=== PATIENT | male | born 1960 | race Caucasian/White ===

== ENCOUNTER 2016-04-09 01:06 | Observation (INO) | payer OTHER ==
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
[2016-04-09] MEDS ORDERED: NS 1,000 ML IV ONE ×2 (01:33→02:01)
[2016-04-09] MEDS ORDERED: fentaNYL 100 MCG/2 ML INJ IVP ONE (01:33)
[2016-04-09] MEDS ORDERED: ONDANSETRON 4 MG/2 ML VIAL IVP ONE (01:33)
[2016-04-09] MEDS ORDERED: IOPAMIDOL (ISOVUE-300) 100 ML BTL IV ONE ×2 (01:53→09:51)
[2016-04-09 02:11] LABS: ADD DIFF? YES; ADD MORPH? NO; ATYPICAL LYMPHOCYTE FLAG 0 (0-99); FRAGMENT RBC FLAG 0 (0-99); HEMATOCRIT 27.7 % (40.0-51.0); HEMOGLOBIN 8.9 g/dL (13.7-17.5); LIPEMIA HEMOLYSIS FLAG 80 (0-99); MEAN CELL HEMOGLOBIN CONCENTR. 32.1 g/dL (32.4-36.7); MEAN CELL VOLUME 93.3 fL (81.5-99.8); MEAN PLATELET VOLUME 12.6 fL (8.7-11.7); PLATELET CLUMPS FLAG 0 (0-99); PLATELET COUNT 60 10^3/uL (150-400); RED BLOOD CELL COUNT 2.97 10^6/uL (4.40-6.38); RED CELL DISTRIBUTION WIDTH 16.1 % (11.5-15.2)
[2016-04-09 02:13] LABS: ADD SCAN? NO; LEFT SHIFT FLG 140 (0-99)
[2016-04-09 02:19] LABS: INR 1.18 (0.83-1.16)
[2016-04-09 02:20] LABS: APTT 25.9 SEC (23.0-38.0)
[2016-04-09 02:24] LABS: ALANINE AMINOTRANSFERASE 41 IU/L (21-72); ALBUMIN 3.3 g/dL (3.5-5.0); ALKALINE PHOSPHATASE 183 IU/L (38-126); ANION GAP 10 mEq/L (8-16); ASPARTATE AMINOTRANSFERASE 43 IU/L (17-59); BILIRUBIN,TOTAL 0.5 mg/dL (0.1-1.4); CALCIUM 9.2 mg/dL (8.5-10.4); CARBON DIOXIDE 24 mEq/l (22-31); CHLORIDE 100 mEq/L (97-110); CREATININE 0.9 mg/dL (0.7-1.3); GLOMERULAR FILTRATION RATE > 60; GLUCOSE 117 mg/dL (70-100); POTASSIUM 3.6 mEq/L (3.5-5.2); SODIUM 134 mEq/L (134-144); TOTAL PROTEIN 6.2 g/dL (6.3-8.2)
[2016-04-09 03:21] LABS: PLATELET ESTIMATE DECREASED (ADEQ)
[2016-04-09 03:22] LABS: TOXIC GRANULATION PRESENT
[2016-04-09] MEDS ORDERED: CEFEPIME HCL 2 GM in D5W 100 ML IV ONE (03:28)
[2016-04-09] MEDS ORDERED: VANCOMYCIN HCL/NORMAL SALINE 250 ML IV ONE (03:30)
[2016-04-09 04:13] LABS: COLOR YELLOW; LEUKOCYTE ESTERASE,URINE NEGATIVE (NEGATIVE); NITRITE,URINE NEGATIVE (NEGATIVE)
[2016-04-09 04:41] LABS: MUCUS TRACE /lpf (NONE-1+); RBC,URINE 15-25 /hpf (0-3)
[2016-04-09] MEDS ORDERED: ONDANSETRON DISINTEGRATING 4 MG TAB PO PRN ×2 (05:02→10:41)
[2016-04-09] MEDS ORDERED: ACETAMINOPHEN 325 MG TAB PO PRN (05:02)
--- NOTE | 2016-04-09 05:15 | PDGENHP ---
History and Physical - Chief Complaint back pain - History of Present Illness Pt is 55/M with stage IV pancreatic ca (mets to liver, undergoing chemotherapy, last session 04/05) who presents to the ED with complaint of back pain after falling. Pt states he went snowboarding at [facility] on 04/08, at around 4 pm he fell backward, landing on his back and left side. Immediately he felt breathless from the fall, but was able [place] By arrival at the bottom, he began to feel significant sharp pain in his left mid back, shoulder and left flank. He also describes feeling dizzy and significantly short of breath. He was then driven home by his friends, where he took 2 tabs of percocet and laid down in his bed. The pain continued to worsen, with no improvement with percocet, so he decided to come to the ED. He also began experiencing abdominal/bloating pain, without nausea/vomiting. He denies any recent fevers (has chronic chills, nightsweats), congestion, cough , chest pain, palpitations, dysuria or diarrhea. Last BM was this morning and normal. Upon arrival to the ED, pt was afebrile and initially hemodynamically stable. While being evaluated in the ED, pt's BP began to decrease (to SBP 80s). Labs were significant for leukocytosis (32k), mild anemia (Hb 8), thrombocytopenia, CMP (mild alk phos elevation) was largely normal and UA was neg for infection. CT head, c-spine and chest were obtained in evaluation for any acute trauma and were negative for acute traumatic abnormalities. CT chest revealed bibasilar atelectasis vs infiltrate. Onc manager clinical applications was consulted and recommended empiric abx and inpt observation. Pt was then cultured, given Vanc/Cefepime and admitted to the hospitalist service for further management. History Information - Allergies/Home Medication List Allergies/Adverse Reactions: No Known Allergies Allergy (Unverified 04/09/16 03:44) Home Medications: LORazepam 04/09/16 [Last Taken Unknown] Losartan Potassium 04/09/16 [Last Taken Unknown] [place] 5/325 (*) 04/09/16 [Last Taken Unknown] Ricardo Mooney 16,000 Units Caps 04/09/16 [Last Taken Unknown] ZOLPIDEM TARTRATE 04/09/16 [Last Taken Unknown] Zofran Odt 04/09/16 [Last Taken Unknown] I have personally reviewed and updated: family history, medical history, social history, surgical history - Past Medical History Additional medical history: Stage IV Pancreatic ca: dx 09/2015, initiated on chemo in 10/2015 via R chest wall chemoport; follows with [facility]. Hospitalized in 11/2015 for abdominal infection, treated with short course of antibiotics. - Surgical History Additional surgical history: knee arthroscopy. 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 Lives with in [place]. Review of Systems ROS: 10pt was reviewed & negative except for what was stated in HPI & below Physical Exam Temp Pulse Resp BP Pulse Ox 36.6 C 86 18 93/52 L 94 04/09/16 04:24 04/09/16 04:24 04/09/16 04:24 04/09/16 04:24 04/09/16 04:24 O2 (L/minute) 2 Constitutional: no apparent distress, appears nourished, uncomfortable (in pain) Eyes: PERRL, anicteric sclera, EOMI Ears, Nose, Mouth, Throat: moist mucous membranes, hearing normal, ears appear normal, no oral mucosal ulcers Cardiovascular: regular rate and rhythym, no murmur, rub, or gallop, pulses symmetric bilaterally, No JVD, No edema Peripheral Pulses: 2+: dorsalis-pedis (R), dorsalis-pedis (L) Respiratory: no respiratory distress, no rales or rhonchi, clear to auscultation Gastrointestinal: normoactive bowel sounds, no palpable masses, tenderness (in LUQ/flank with faint ecchymosis present; no RUQ tenderness; nondistended; +BS) Genitourinary: no bladder fullness, no bladder tenderness Skin: warm, normal color, no rashes or abrasions, No mottled Musculoskeletal: full muscle strength, no muscle tenderness, normal joint ROM ( L shoulder with normal ROM, no pain on ROM), no joint effusions, other (diffuse muscular spasm of b/l trapezius/rhomboid mm L>R; NO midline spinal tenderness in C/T/L spine) Neurologic: AAOx3, sensation intact bilaterally, CN II-XII Intact, No weakness, No numbness, No pronator drift Psychiatric: interacting appropriately, not anxious, not encephalopathic, thought process linear Lab Data & Imaging Review 04/09/16 02:00 04/09/16 02:00 WBC 32.15 10^3/uL (3.80-9.50) H 04/09/16 02:00 RBC 2.97 10^6/uL (4.40-6.38) L 04/09/16 02:00 Hgb 8.9 g/dL (13.7-17.5) L 04/09/16 02:00 POC Hgb 9.5 gm/dL (14.5-17.3) L 04/09/16 01:57 Hct 27.7 % (40.0-51.0) L 04/09/16 02:00 POC Hct 28 % (42.8-50.6) L 04/09/16 01:57 MCV 93.3 fL (81.5-99.8) 04/09/16 02:00 MCH 30.0 pg (27.9-34.1) 04/09/16 02:00 MCHC 32.1 g/dL (32.4-36.7) L 04/09/16 02:00 RDW 16.1 % (11.5-15.2) H 04/09/16 02:00 Plt Count 60 10^3/uL (150-400) L 04/09/16 02:00 MPV 12.6 fL (8.7-11.7) H 04/09/16 02:00 Neut % (Auto) Not Reported 04/09/16 02:00 Lymph % (Auto) Not Reported 04/09/16 02:00 [place] % (Auto) Not Reported 04/09/16 02:00 Eos % (Auto) Not Reported 04/09/16 02:00 Baso % (Auto) Not Reported 04/09/16 02:00 Nucleat RBC Rel Count 0.0 % (0.0-0.2) 04/09/16 02:00 Absolute Neuts (auto) Not Reported 04/09/16 02:00 Absolute Lymphs (auto) Not Reported 04/09/16 02:00 Absolute Monos (auto) Not Reported 04/09/16 02:00 Absolute Eos (auto) Not Reported 04/09/16 02:00 Absolute Basos (auto) Not Reported 04/09/16 02:00 Absolute Nucleated RBC 0.00 10^3/uL (0-0.01) 04/09/16 02:00 Immature Gran % Not Reported 04/09/16 02:00 Seg Neutrophils % 78 % 04/09/16 02:00 Band Neutrophils % 8 % 04/09/16 02:00 Lymphocytes % 14 % 04/09/16 02:00 Monocytes % 1 % 04/09/16 02:00 Immature Gran # Not Reported 04/09/16 02:00 Absolute Seg Neuts 25.08 10^/uL (1.70-6.50) H 04/09/16 02:00 Absolute Band Neuts 2.57 10^3/uL (0.00-0.70) H 04/09/16 02:00 Absolute Lymphocytes 4.50 10^3/uL (1.00-3.00) H 04/09/16 02:00 Absolute Monocytes 0.32 10^3/uL (0.30-0.80) 04/09/16 02:00 Toxic Granulation PRESENT H 04/09/16 02:00 Dohle Bodies PRESENT H 04/09/16 02:00 Platelet Estimate DECREASED (ADEQ) L 04/09/16 02:00 PT 15.0 SEC (12.0-15.0) 04/09/16 02:00 INR 1.18 (0.83-1.16) H 04/09/16 02:00 APTT 25.9 SEC (23.0-38.0) 04/09/16 02:00 VBG Lactic Acid 1.1 mmol/L (0.7-2.1) 04/09/16 03:37 POC Sodium 134 mEq/L (134-144) 04/09/16 01:57 Sodium 134 mEq/L (134-144) 04/09/16 02:00 POC Potassium 3.5 mEq/L (3.3-5.0) 04/09/16 01:57 Potassium 3.6 mEq/L (3.5-5.2) 04/09/16 02:00 POC Chloride 98 mEq/L (96-108) 04/09/16 01:57 Chloride 100 mEq/L (97-110) 04/09/16 02:00 Carbon Dioxide 24 mEq/l (22-31) 04/09/16 02:00 Anion Gap 10 mEq/L (8-16) 04/09/16 02:00 POC BUN 23 mg/dL (7-23) 04/09/16 01:57 BUN 23 mg/dL (7-23) 04/09/16 02:00 Creatinine 0.9 mg/dL (0.7-1.3) 04/09/16 02:00 POC Creatinine 0.9 mg/dL (0.8-1.5) 04/09/16 01:57 Estimated GFR > 60 04/09/16 02:00 Glucose 117 mg/dL (70-100) H 04/09/16 02:00 POC Glucose 121 mg/dL (70-100) H 04/09/16 01:57 Calcium 9.2 mg/dL (8.5-10.4) 04/09/16 02:00 Total Bilirubin 0.5 mg/dL (0.1-1.4) 04/09/16 02:00 AST 43 IU/L (17-59) 04/09/16 02:00 ALT 41 IU/L (21-72) 04/09/16 02:00 Alkaline Phosphatase 183 IU/L (38-126) H 04/09/16 02:00 Total Protein 6.2 g/dL (6.3-8.2) L 04/09/16 02:00 Albumin 3.3 g/dL (3.5-5.0) L 04/09/16 02:00 Urine Color YELLOW 04/09/16 02:05 Urine Appearance CLEAR 04/09/16 02:05 Urine pH 5.0 (5.0-7.5) 04/09/16 02:05 Ur Specific [place] 1.018 (1.002-1.030) 04/09/16 02:05 Urine Protein NEGATIVE (NEGATIVE) 04/09/16 02:05 Urine Ketones NEGATIVE (NEGATIVE) 04/09/16 02:05 Urine Blood 2+ (NEGATIVE) H 04/09/16 02:05 Urine Nitrate NEGATIVE (NEGATIVE) 04/09/16 02:05 Urine Bilirubin NEGATIVE (NEGATIVE) 04/09/16 02:05 Urine Urobilinogen NEGATIVE EU (0.2-1.0) 04/09/16 02:05 Ur Leukocyte Esterase NEGATIVE (NEGATIVE) 04/09/16 02:05 Urine RBC 15-25 /hpf (0-3) H 04/09/16 02:05 Urine WBC 1-3 /hpf (0-3) 04/09/16 02:05 Ur Epithelial Cells TRACE /lpf (NONE-1+) 04/09/16 02:05 Urine Mucus TRACE /lpf (NONE-1+) 04/09/16 02:05 Ur Culture Indicated? NOT INDICATED (NI) 04/09/16 02:05 Urine Glucose NEGATIVE (NEGATIVE) 04/09/16 02:05 Visualized and Interpreted Chest x-ray results: Yes Chest X-Ray results: no infiltrate, normal Visualized and Interpreted imaging results: Yes Interpretation: CT Chest: no acute rib fractures noted; bibasilar atelectasis vs infiltrate; hepatomegaly. CT C-spine: no acute fracture. CT Head; no acute intracranial hemorrhage, edema, shift Assessment & Plan Assessment: Pt is 55/M with stage IV pancreatic ca who presents to the ED with L-sided back pain after sustaining a mechanical fall while snowboarding. ED w/u also revealed, leukocytosis and hypotension concerning for occult infection. Plan: # acute pain of back and flank Pain appears to be related to the acute fall sustained earlier in the day. Imaging has ruled out acute fracture, internal hemorrhage, pneumothorax and physical exam is consistent with acute muscle spasm. Will treat with pain meds and muscle relaxants, as tolerated by BP. - Dilaudid 0.2-0.4 mg IVP q3h prn - valium 5 mg IVP q6h prn # leukocytosis Etiology of this at this time is unclear. Concern for bacterial infection is high, given pt is immunocompromised, but no obvious source has yet been identified (?atelectasis in CT chest, port site nonerythematous/nontender, UA neg, bilirubins/LFTs wnl). Mildly elevated alk phos likely related to pancreatic ca, but will check Abd US. Will treat with empiric broad spectrum abx until source can be identified. - f/u blood cultures - check abd US, if unrevealing, consider CT abd/pelvis - cont Vanc 1 g q12h - Cefepime 2 g q12h - cont NS @ 100 cc/hr # anemia, thrombocytopenia Pt states this has been an ongoing side-effect of his chemo regimen. Has been receiving neulasta infusions for treatment (which could be contributing to leukocytosis). No obvious signs of bleeding, coags wnl. - trend CBC # stage IV pancreatic ca Stable. [facility] notified of pt's admission by ED. # dispo: admit to obs status for acute pain control and w/u for infection # gen: regular diet DVT ppx: lovenox, dc if Plts <50 full code
[2016-04-09] MEDS: NS 1,000 ML IV SCH (05:20)
[2016-04-09] MEDS: HYDROmorphONE/DILAUDID 1 MG/ML SYR IVP PRN ×3 (05:29→15:09)
[2016-04-09] MEDS: ONDANSETRON 4 MG/2 ML VIAL IVP PRN ×2 (05:43→20:42)
[2016-04-09] MEDS: oxyCODONE IR 5 MG TAB PO PRN ×4 (08:27→20:42)
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
[2016-04-09 08:58] LABS: ADD DIFF? YES; ADD MORPH? NO; ATYPICAL LYMPHOCYTE FLAG 0 (0-99); FRAGMENT RBC FLAG 0 (0-99); HEMATOCRIT 24.1 % (40.0-51.0); HEMOGLOBIN 7.8 g/dL (13.7-17.5); LIPEMIA HEMOLYSIS FLAG 80 (0-99); MEAN CELL HEMOGLOBIN 30.2 pg (27.9-34.1); MEAN CELL HEMOGLOBIN CONCENTR. 32.4 g/dL (32.4-36.7); MEAN CELL VOLUME 93.4 fL (81.5-99.8); PLATELET CLUMPS FLAG 0 (0-99); PLATELET COUNT 55 10^3/uL (150-400); RED BLOOD CELL COUNT 2.58 10^6/uL (4.40-6.38); RED CELL DISTRIBUTION WIDTH 16.2 % (11.5-15.2)
[2016-04-09] MEDS ORDERED: ENOXAPARIN 40 MG/0.4 ML SYR SC SCH ×2 (09:00)
[2016-04-09 09:04] LABS: LEFT SHIFT FLG 240 (0-99)
--- NOTE | 2016-04-09 09:05 | US ---
Ultrasound of the Abdomen Complete History: Pancreatic cancer, leukocytosis. Findings Gallbladder: A 1.1 cm mobile shadowing calculus in the gallbladder. No gallbladder wall thickening or pericholecystic fluid. Common bile duct is 5 mm in diameter, which is normal. Liver: Heterogeneous in echogenicity and measures 17 cm in length. No definite focal lesions. Renal: Right kidney measures 12 x 5 x 6 cm and left kidney 12 x 6 x 5 cm without hydronephrosis in ei ther kidney. Spleen: Mild splenomegaly, measuring 16.8 cm in length. Pancreas: Obscured by bowel gas. Aorta: Visualized upper abdominal aorta demonstrates no aneurysm. Small amount of ascites in the upper abdomen and right lower quadrant which appears complex fluid. Mo re focal complex fluid identified in the right lower quadrant, measuring 14 x 9 cm. IVC: Grossly patent. Impressions: 1. Cholelithiasis without biliary ductal dilation or pericholecystic fluid. 2. Pancreas obscured by bowel gas. 3. Hepatomegaly and splenomegaly without definite focal hepatic lesions. 4. Complex ascites in the right lower quadrant measuring 14 x [address] abdomen and pelvis if clinically indicated.
--- NOTE | 2016-04-09 10:26 | CT ---
Unenhanced CT Scan of the Brain Clinical History: 55-year-old male with a history of Stage IV pancreatic carcinoma with hepatic metastatic disease, who fell snowboarding at 4:00 p.m. and complains of pain in the left rib cage and back inferior to the scapula, and has some slowing of mentation. The patient took some narcotics at home, is hypotensive, and is noted to have an elevated white blood cell count of 33,000. Technique: Standard unenhanced axial CT images were acquired from the skull base to the skull vertex with images reformatted at 5.00 and 1.50 mm increments , and reviewed in bone, brain, and subdural windows. The DFOV is 25 cm. Parasagittal and paracoronal reconstructed images were reviewed on the workstation. A dose reduction protocol was used. Comparison Study: None. Findings: The ventricles and basilar cisterns are normal in size and symmetrical in configuration. There is no midline shift, or other evidence of mass effect. There is no acute or subacute abnormal intra- or extraaxial blood collection, or infarction. The brainstem and cerebellum appear normal. There is some mild atherosclerotic calcification associated with the cavernous carotid arteries and the right vertebral artery. There is no skull fracture, nor is there a lytic or blastic lesion. The craniocervical junction, sella turcica, pineal gland, and the orbits are unremarkable. There is trace mucosal thickening in the floor of the maxillary sinuses. The other paranasal sinuses are patent, as are the mastoids. Impression: There is no acute intracranial abnormality. If there is further clinical concern regarding the patient's symptoms, MR imaging could be considered. I provided a preliminary interpretation to Dr. Branden Cornejo at 3:05 a.m. on Monday, April 09, 2016. My final interpretation is concordant with my initial impression. [id number] POS 99 MTDD
[2016-04-09] MEDS ORDERED: PROTEASE PO PRN (10:30)
[2016-04-09] MEDS ORDERED: AMYLASE PO PRN (10:30)
[2016-04-09] MEDS ORDERED: ONDANSETRON 8 MG PO PRN (10:30)
[2016-04-09] MEDS ORDERED: LIPASE PO PRN (10:30)
[2016-04-09] MEDS ORDERED: LORazepam 1 MG TAB PO PRN (10:30)
[2016-04-09] MEDS ORDERED: MEGESTROL ACETATE 800 MG PO PRN (10:30)
--- NOTE | 2016-04-09 10:35 | HOSPPROG ---
Hospitalist Progress Note Assessment/Plan: Pt is 55/M with stage IV pancreatic ca who presents to the ED with L-sided back pain after sustaining a mechanical fall while snowboarding. ED w/u also revealed, leukocytosis and hypotension concerning for occult infection. # acute pain of back and flank s/p recent trauma -trauma consult -stat ct abd/pelvis to eval for bleed # leukocytosis without obvious source of infection suspect related to trauma -monitor off abx -followup blood cultures # anemia, thrombocytopenia Pt states this has been an ongoing side-effect of his chemo regimen. Has been receiving neulasta infusions for treatment (which could be contributing to leukocytosis). No obvious signs of bleeding, coags wnl. - trend CBC # stage IV pancreatic ca Stable. [facility] notified of pt's admission by ED. # dispo: admit to obs status for acute pain control and w/u for infection # gen: regular diet DVT ppx: hold lovenox given recent trauma and concern for bleeding with hypotension and anemia full code Subjective: continues to have back pain and some mild llq abd pain. no fever or chills Objective: Vital Signs Temp Pulse Resp BP Pulse Ox 36.3 C 74 18 98/58 L 94 04/09/16 07:12 04/09/16 07:12 04/09/16 07:12 04/09/16 07:12 04/09/16 07:12 Laboratory Results 04/09/16 08:00 04/08/16 04/09/16 04/10/16 05:59 05:59 05:59 Intake Total 2110 50 Balance 2110 50 PT 15.0 SEC (12.0-15.0) 04/09/16 02:00 INR 1.18 (0.83-1.16) H 04/09/16 02:00 - Physical Exam Constitutional: no apparent distress, other (nontoxic appearing) Cardiovascular: regular rate and rhythym, no murmur, rub, or gallop Respiratory: no respiratory distress, no rales or rhonchi, clear to auscultation Gastrointestinal: normoactive bowel sounds, soft, non-tender abdomen, no palpable masses, No guarding, No rebound Skin: no rashes or abrasions, no fluctuance, no induration Neurologic: AAOx3, CN II-XII Intact, No facial droop ICD10 Worksheet Patient Problems: Problems Problem Status Diagnosed Fall Acute Hypotension Acute
[2016-04-09] MEDS ORDERED: MEGESTROL ACETATE 400 MG/10 ML UDL PO PRN (10:42)
[2016-04-09] MEDS ORDERED: PANCRELIPASE PO PRN (10:43)
--- NOTE | 2016-04-09 11:04 | CT ---
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 and complains of pain in the left rib cage and back inferior to the scapula, and has some slowing of mentation. The patient took some narcotics at home, is hypotensive, and is noted to have an elevated white blood cell count of 33,000. Technique: 1.25-mm thick axial collimated slices were obtained from the occiput through superior endplate of T2. The data was reconstructed in the sagittal and coronal planes. Both soft tissue and bone windows were reviewed. Dose reduction techniques were utilized. The DFOV is 16.0 cm. Findings: There is reversal of the normal cervical lordosis. The vertebral body heights and posterior alignments are otherwise unremarkable. There is mild-to- moderate degenerative disk space narrowing at C5-C6, with small ventral and dorsal traction osteophytes. There is no acute fracture, spondylolisthesis, or facet malalignment. The interspinous distances are normal. The craniocervical junction, predental space, atlantoaxial alignment, and the cervicothoracic alignment are maintained. The visualized prevertebral soft tissues and the lung apices are unremarkable. There is no prevertebral or epidural hematoma observed. At the C1-C2 level, there is a normal appearance to the predental space and of the lateral masses of C1 and C2. The base and the tip of the dens are normal. The central canal is patent. The C2-C3 level is normal, with no central canal or neural foraminal stenosis. At the C3-C4 level, there is some mild bilateral facet hypertrophy and some right-sided uncovertebral hypertrophy, resulting in mild right neural foraminal stenosis. The central canal and left neural foramina are patent. At the C4-C5 level, there is mild bilateral facet hypertrophy with uncovertebral hypertrophy on the right side, resulting in mild right C4-C5 neural foraminal stenosis. The central canal and left neural foramina are patent. At the C5-C6 level, there is mild bilateral facet hypertrophy with uncovertebral osteophyte formation, resulting in moderate left and mild right neural foraminal stenosis. A left paracentral dorsal disc-osteophyte complex results in mild left paracentral canal stenosis and left lateral recess narrowing. The C6-C7 and C7-T1 levels are normal. Impression: 1. Reversal of the normal cervical lordosis. 2. There are some degenerative features at C3-C4, C4-C5, and C5-C6, as above- detailed. 3. There is no acute cervical osseous abnormality identified. If there is further clinical concern regarding the patient's cervical spine, MR imaging could be considered. I provided a preliminary interpretation to Dr. Branden Cornejo at 3:05 a.m. on Monday, April 09, 2016. My final interpretation is concordant with my initial impression. [id number] POS 99 MTDD
--- NOTE | 2016-04-09 11:07 | CT ---
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 and complains of pain in the left rib cage and back inferior to the scapula, and has some slowing of mentation. The patient took some narcotics at home, is hypotensive, and is noted to have an elevated white blood cell count of 33,000. Technique: The patient received 90 mL of IV Isovue 300 without complication and a multidetector helical CT scan was obtained from the base of the neck inferiorly to the upper abdomen during peak systemic arterial phase, with images reformatted at 1.50 and 4/3 mm increments, and reviewed in bone, soft tissue, lung, and liver windows. The DFOV is 41.8 cm. Parasagittal and paracoronal reconstructed images were reviewed on the workstation. A dose reduction protocol was used. Comparison Study: Chest and left rib radiography dated April 15, 2013. Prior cross-sectional imaging is not currently available for comparison. Findings: There is a right IJ central venous catheter MediPort which terminates at the SVC/right atrial junction. There is an old mild healed deformity of the right 2nd rib. There is no acute rib fracture. Each scapula appears intact, and the glenohumeral joints are anatomically aligned. The thoracic vertebral body heights and posterior alignments are maintained. There are areas of bibasilar subsegmental atelectasis versus pulmonary contusion versus infiltrates. There is no pleural or pericardial effusion, nor is there a pneumothorax or pneumomediastinum. The thoracic inlet appears normal. The visualized thyroid gland is unremarkable. There is no pathologically-enlarged axillary or intrathoracic adenopathy. The thoracic aortic contour is normal. The central pulmonary artery segments are normal in size. The sternum is intact. The upper abdomen is notable for some mildly complex perihepatic and perisplenic ascites with Hounsfield unit measurements of 30-38. The spleen is mildly enlarged, measuring 14.6 x 7.6 cm. The patient reportedly has known hepatic metastasis, with limited assessment during this arterial phase-only study. The hepatic veins have not yet opacified. The gallbladder is moderately distended, but incompletely imaged. There is some mild atrophy of the distal pancreatic body and tail, and there is some differential diminished attenuation at the posteromedial junction of the pancreatic neck and head, near the celiac axis, which may represent the site of the patient's known primary tumor. There is a 2.1 x 1.5 cm hepatogastric ligament lymph node on series 3, image 196. The visualized portions of the adrenal glands and kidneys are unremarkable. The stomach is incompletely-distended. Impression: 1. Mild bibasilar airspace disease, which could reflect subsegmental atelectasis , mild pulmonary contusions, or early infiltrates (pneumonia). 2. Old healed right 2nd anterior rib fracture, with no acute left rib fracture. 3. There is no evidence of pneumothorax or pneumomediastinum. 4. Small amount of mildly complex perihepatic and perisplenic ascites with some differential mass-like attenuation associated near the celiac axis and the posteromedial aspect of the pancreatic neck and head in this patient with a history of Stage IV pancreatic malignancy. Previously documented hepatic metastatic disease is not well-delineated on this arterial phase with limited coverage of the abdomen. 5. Mild splenomegaly. Results were called to Dr. Branden Cornejo at 3:05 a.m. on Monday, April 09, 2016. [id number] POS 99 MTDD
--- NOTE | 2016-04-09 11:18 | CT ---
CT Scan of the Abdomen and Pelvis (With Contrast) April 09, 2016 at 1020 Hours History: Metastatic pancreatic cancer, leukocytosis, recent fall from skiing. Technique: Axial computed tomographic images of the abdomen and pelvis were obtained with the unevent ful intravenous administration of 80 mL Isovue-300 contrast. No oral or rectal contrast which limits the study. Dose reduction techniques were utilized. CT Abdomen Findings Lung bases: Bilateral lower lobe alveolar opacities representing pneumonia versus pulmonary contusion s. Liver: Hypodense lesion in the right lobe of the liver measuring 1 x 1 cm. Diffusely heterogeneous li noam also noted. A few hypodensities in the left lobe of the liver may represent metastasis, also carmen uring up to 1 cm. No hepatic laceration. Biliary system: No obstruction. Spleen: No splenic laceration or splenomegaly. Pancreas: Hypodense lesion involving the posterior body of the pancreas which appears to encase sandi c artery region, measuring approximately 3.5 x 2.3 cm, suspicious for the patient's known pancreatic cancer. There are peripancreatic lymph nodes with a gastrohepatic lymph node measuring 2 x 1.5 cm. No pancreatic ductal dilation. Adrenals: Normal. Kidneys: No renal laceration or urinary tract obstruction. Abdominal aorta: Mild atherosclerotic aorta without aneurysm. Atherosclerotic iliac arteries also not ed. Small amount of ascites throughout the upper abdomen surrounding the liver and in bilateral paracolic gutters, right greater than left. Small to moderate ascites in the pelvis with insufficient ascites for safe paracentesis. CT Pelvis Findings: No bowel obstruction. No drainable abscess. No pneumoperitoneum. No significant p elvic adenopathy. No evidence of destructive osseous lesions. No evidence of retroperitoneal hematoma . Impressions: 1. Bilateral lower lobe atelectasis versus pneumonia versus pulmonary contusions. 2. Small-moderate amount of free fluid, hemorrhage, or ascites in the abdomen and pelvis, insufficien t for safe paracentesis. No definite laceration of the liver, spleen, or kidneys. 3. No bowel obstruction or pneumoperitoneum. 4. Possible hepatic metastasis. 5. Pancreatic body mass suspected, encasing the superior mesenteric artery with adjacent lymphadenopa thy. No prior studies for comparison. Findings and recommendations discussed with Dr. Franklin Rivas hospitalist today.
[2016-04-09 11:24] LABS: PLATELET ESTIMATE DECREASED (ADEQ)
[2016-04-09] MEDS ORDERED: BISACODYL 10 MG SUPP PR PRN (11:46)
[2016-04-09] MEDS ORDERED: LACTULOSE 20 GM/30 ML UDCUP PO PRN (11:46)
[2016-04-09] MEDS ORDERED: MAGNESIUM HYDROXIDE 30 ML UDCUP PO PRN (11:46)
[2016-04-09] MEDS ORDERED: POLYETHYLENE GLYCOL 3350 17 GM PKT PO PRN (11:46)
[2016-04-09] MEDS ORDERED: PROTEASE PO SCH (12:00)
[2016-04-09] MEDS ORDERED: AMYLASE PO SCH (12:00)
[2016-04-09] MEDS ORDERED: CEFEPIME HCL 2 GM in D5W 100 ML IV SCH (12:00)
[2016-04-09] MEDS ORDERED: LIPASE PO SCH (12:00)
--- NOTE | 2016-04-09 14:08 | GCON ---
[f rep st] CONSULTATION TRAUMA CONSULTATION DATE OF CONSULTATION: 04/09/2016 CHIEF COMPLAINT: Back pain. HISTORY OF PRESENT ILLNESS: This is a 55-year-old male, who presented to the emergency department af ter sustaining a fall while snowboarding yesterday afternoon. The patient states that he was at [facility] snowboarding, when late in the afternoon yesterday, around 4 p.m., he sustained a fall. He states that he did not have loss of consciousness but that he did fall and hit most of his back, r ight greater than left. He was able to finish his run. At the bottom of the run, he did state that he felt nauseated, lightheaded, and generally unwell. The patient states that he and his friends the n left the mountain and came back down to [place]. During his ride, he states that the pain persiste d and was associated with intermittent chills, lightheadedness, and nausea, that the pain was most li linda in his back on the right side without radiation. The patient states that he subsequently then w ent home, went immediately to bed at around 8:30 last night. He had a difficult time sleeping, awoke around midnight and had the persistent pain, which prompted his presentation here around 1 a.m. In the emergency department, he was evaluated by the ED staff. He had imaging performed of his head, C- spine, and chest x-ray, including abdominal ultrasound. The patient has a known history of stage IV metastatic pancreatic cancer. His imaging to that point in time was negative for an acute injury. B ut, given his significant amount of pain, he was subsequently admitted to the medicine service. He d id receive an abdominal ultrasound, which showed no acute findings other than a small amount of ascit es within his pelvis related to his metastatic liver lesions. On my consultation, the patient states that he overall feels well, does have some general muscle aches and pains in his right lower back an d left chest, but otherwise, feels well and just finished eating lunch. He denies having nausea or v omiting, and the chills and lightheadedness that he was experiencing previously, has resolved. He sta radha that his pain is controlled. He is now able to take deeper breaths and that he is feeling better . He denies having fevers or chills and states that he is improving. PAST MEDICAL HISTORY: Stage IV pancreatic cancer diagnosed in September 2015, currently receiving chemoth erapy. SURGICAL HISTORY: Knee scope, and chemotherapy port placed in October 2015. FAMILY HISTORY: Noncontributory. SOCIAL HISTORY: He is a nonsmoker. Denies alcohol use. Denies illicit drug use. REVIEW OF SYSTEMS: A full 10-point review was performed and unless explicitly stated above, is other jacobs negative. CURRENT MEDICATIONS: Includes lorazepam, losartan, Richards, zolpidem, and Zofran. The patient recentl y received a Neulasta dose Monday of this previous week. PHYSICAL EXAM: VITAL SIGNS: Temperature 36.3. His heart rate is 74. His blood pressure is 98/58, a nd he is 94% on 2 L. GENERAL: He is alert, oriented, in no acute distress. EYES: Extraocular move ments are intact. His pupils are equal, round, reactive to light and accommodation. There is no scl eral icterus identified. FACE: His jaw is midline. NECK: Soft, supple, without any tenderness and /or abrasions. CHEST: There is no crepitus or tenderness appreciated. LUNGS: Clear to auscultatio n bilaterally. His chemotherapy port on his right chest is clean dry and intact and covered with a s terile dressing. ABDOMEN: His abdomen is soft, nondistended, nontender. No previous surgical scars identified. PELVIC: His pelvis is stable to both AP and lateral compression. EXTREMITIES: His ex tremities are warm and well perfused. IMAGING: Includes a CT of his head, chest, and C-spine, all of which are negative for acute injury. He had an ultrasound of his abdomen showing known metastatic lesions within his liver and a moderate amount of abdominal ascites. He had a CT of his abdomen and pelvis, which shows no solid organ inju ry, again, with some moderate amount of ascites but no other concerning findings. LABS: He has a white blood cell count of 28,000, hemoglobin of 7.8, hematocrit of 24.1, and platelet count of 55,000. His chemistries are within normal limits with the exception of an elevated alk lissa s at 183. His AST, ALT, and total bilirubin are within normal limits. ASSESSMENT AND PLAN: A 55-year-old male admitted status post snowboarding accident. On my examinati on, I identified no additional injuries other than some musculoskeletal pain related from his snow dani arding accident. I reviewed his imaging, most pertinently of his CT abdomen, as I was concerned, giv en the fact that the he did have free fluid within his belly and had a low hemoglobin, that he had a solid organ injury. However, this was not corroborated by the CT scan of his abdomen, and this more than likely represents the ascites fluid within his belly related to his metastatic cancer. His whit e blood cell count is more than likely elevated via a combination of demargination, as well as his re cent Neulasta dose, which is known to cause leukocytosis. As he just tolerated a regular diet and connell s no abdominal pain, I am fairly certain he does not have a missed small bowel injury. We will los yamilex to follow him. More than likely, he will be monitored 1 more night on the medicine service. Wesly moreland evaluate him in the morning, at which point in time, more than likely, he will be suitable for disc harge. /[id number]/MODL
[2016-04-09] MEDS: DIAZEPAM 10 MG/2 ML SYR IVP PRN ×2 (15:09→20:49)
[2016-04-09] MEDS: PANCRELIPASE PO SCH ×2 (15:19→17:21)
[2016-04-09] MEDS: SENNOSIDES/DOCUSATE SODIUM TAB PO SCH (20:42)
[2016-04-09] MEDS ORDERED: NON-FORMULARY NEW DRUG (Zolpidem Tartrate [Ambien 10 Mg] 10 MG) PO SCH (21:00)
[2016-04-09] MEDS ORDERED: ZOLPIDEM TARTRATE 5 MG TAB PO SCH (21:00)
[2016-04-10] MEDS: NS 1,000 ML IV SCH (00:49)
[2016-04-10] MEDS: oxyCODONE IR 5 MG TAB PO PRN ×2 (00:49→09:02)
--- NOTE | 2016-04-10 08:59 | TRAUMAPN ---
- Problem/Surgery Performed (1) Stage IV adenocarcinoma of pancreas Assessment/Plan: On FOLFOX per Dr. 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 (3) Hypoxemia Assessment/Plan: 89-90% on RA at rest will recheck and continue supplemental 02 as needed (4) Sleep apnea, obstructive Assessment/Plan: restart CPAP Assessment/Plan: s/p snowboarding accident with left chest wall contusion/microhematuria c/w mild renal contusion (normal on CT) stage IV pancreatic CA on chemotherapy/Neulasta hypoxemia-likely related to underlying anemia and impaired air movement due to pain Subjective: resting comfortably this morning with persistant left chest wall/back pain Objective: Vital Signs Temp Pulse Resp BP Pulse Ox 37.2 C 81 18 99/65 L 93 04/10/16 05:15 04/10/16 05:15 04/10/16 05:15 04/10/16 05:15 04/10/16 05:15 Laboratory Results 04/09/16 08:00 04/09/16 04/10/16 04/11/16 05:59 05:59 05:59 Intake Total 2110 4785 Balance 2110 4785 PT 15.0 SEC (12.0-15.0) 04/09/16 02:00 INR 1.18 (0.83-1.16) H 04/09/16 02:00 - C-Spine Clearance Cervical Spine Cleared: Yes Provider who Cleared Cervical Spine: Dr. Lo Physical Exam - Physical Exam General Appearance: WD/WN, mild distress, thin, other (pale) Respiratory: lungs clear, decreased breath sounds Cardiac/Chest: regular rate, rhythm Abdomen: normal bowel sounds, non-tender, soft Neuro/Psych: alert, normal mood/affect, oriented x 3
[2016-04-10] MEDS: PANCRELIPASE PO SCH (09:02)
[2016-04-10] MEDS: SENNOSIDES/DOCUSATE SODIUM TAB PO SCH (09:03)
[2016-04-10] MEDS ORDERED: DIAZEPAM 5 MG TAB PO PRN (09:04)
[2016-04-10 09:07] VITALS: BP 110/70; PULSE 91; TEMP 97.9
[2016-04-10 09:12] LABS: % IMMATURE GRANULYOCYTES 0.8 % (0.0-1.1); ABSOLUTE IMMATURE GRANULOCYTES 0.14 10^3/uL (0.00-0.10); ADD DIFF? NO; ADD MORPH? NO; ADD SCAN? YES; ATYPICAL LYMPHOCYTE FLAG 0 (0-99); FRAGMENT RBC FLAG 0 (0-99); LIPEMIA HEMOLYSIS FLAG 80 (0-99); MEAN CELL HEMOGLOBIN 30.1 pg (27.9-34.1); MEAN PLATELET VOLUME 12.1 fL (8.7-11.7); PLATELET CLUMPS FLAG 10 (0-99); RED BLOOD CELL COUNT 2.66 10^6/uL (4.40-6.38); RED CELL DISTRIBUTION WIDTH 16.1 % (11.5-15.2)
[2016-04-10 09:13] LABS: LEFT SHIFT FLG 300 (0-99); PLATELET COUNT 36 10^3/uL (150-400)
[2016-04-10 09:40] LABS: PLATELET ESTIMATE DECREASED (ADEQ); SCAN NEGATIVE
[2016-04-10 10:01] VITALS: RESP 20; O2SAT 87
--- NOTE | 2016-04-10 10:55 | GDS ---
[f rep st] DISCHARGE SUMMARY DISCHARGE DIAGNOSES: 1. Left chest wall contusion with microhematuria, consistent with mild renal contusion, status post snowboarding accident. 2. Stage IV adenocarcinoma of the pancreas. 3. Anemia, likely multifactorial, but likely related to chemotherapy, acute illness, and no signs of acute active bleeding. 4. Multifactorial hypoxemia secondary to atelectasis and anemia. 5. Obstructive sleep apnea. 6. Leukocytosis, most likely due to Neupogen without any signs of acute infection. CONSULTANTS: Trauma Services. HOSPITAL COURSE AND STAY BY PROBLEM: Chest wall pain: The patient was placed on observation for con cerns for infection. The morning of hospitalization the patient was noted to be slightly hypotensive and anemic. Subsequently, Trauma Surgery was consulted. A CT of the abdomen and pelvis was done th at was negative for any solid organ injury or obvious signs of acute bleeding. The admitting physici an initially had some concerns of an infectious process. He received empiric vancomycin and cefepime . These antibiotics were stopped after 1 dose since the patient did not appear to be toxic. I suspe cted that his leukocytosis was due to acute injury as well as his recent dose of Neupogen. Blood cul tures done on presentation have not grown any organisms. Throughout the patient's hospital stay, his condition has continued to improve. Repeat laboratory st udies done on 04/10/2016 reveal improving leukocytosis of 18,000, with a stable anemia, with hemoglo bin of 8 and hematocrit of 25. Once again, a CT of the abdomen was done on 04/09/2016, which revealed bilateral lower lobe infiltrat es, which I doubt are pneumonia since the patient is once again nontoxic appearing. He denies any co ugh or any other clinical signs of pneumonia. I think these infiltrates are better explained by atel ectasis in the setting of a chest wall injury from his recent trauma. PHYSICAL EXAMINATION: VITAL SIGNS: On day of discharge, blood pressure 110/70, heart rate 91, respi ratory rate 18, O2 saturation 94% on 3 L. Temperature afebrile. LUNGS: Clear. No wheezes, rales, or rhonchi. ABDOMEN: Soft, nontender, nondistended. No guarding or rebound tenderness. Normoactiv e bowel sounds. LABS/DIAGNOSTICS: CT of the abdomen and pelvis done on 04/09/2016, refer to report. Abdominal ultra sound done 04/09/2016, refer to report. Cervical spine CT done 04/09/2016, refer to report. Chest C T done 04/09/2016, refer to report. Head CT done 04/09/2016, refer to report. DISCHARGE MEDICATIONS: Please refer to discharge medication reconciliation in [facility] for full deta ils. Below is a preliminary list. NEW MEDICATIONS ON HOSPITAL DISCHARGE: Oxycodone 5-10 mg p.o. q.3 hours p.r.n. chest wall pain a ref ill for Ambien 10 mg p.o. at bedtime p.r.n. insomnia, given #10. DISCHARGE INSTRUCTIONS: The patient will be discharged from the hospital with home oxygen. He shoul d follow up with his primary care provider and treating oncologist as scheduled. He was instructed t o seek medical attention if he develops any clinical signs of pneumonia, which include fever, cough, or worsening shortness of breath. /[id number]/MODL
== END 2016-04-10 12:47 | disposition home or self-care (01) ==
LOC: F1N 03:50
PROVIDERS: ADMIT Internal Medicine; ATTEND Family Medicine
DX: S20.222A Contusion of left back wall of thorax, initial encounter (principal); R31.29 Other microscopic hematuria; C25.9 Malignant neoplasm of pancreas, unspecified; V00.311A Fall from snowboard, initial encounter; Y93.23 Activity, snow (alpine) (downhill) skiing, snowboarding, sledding, tobogganing and snow tubing; D61.1 Drug-induced aplastic anemia; R09.02 Hypoxemia; R18.8 Other ascites; R16.2 Hepatomegaly with splenomegaly, not elsewhere classified; J98.11 Atelectasis; D72.829 Elevated white blood cell count, unspecified; C78.7 Secondary malignant neoplasm of liver and intrahepatic bile duct; I95.89 Other hypotension; G47.33 Obstructive sleep apnea (adult) (pediatric); Y92.828 Other wilderness area as the place of occurrence of the external cause; Y99.8 Other external cause status; F41.9 Anxiety disorder, unspecified; Z96.89 Presence of other specified functional implants
CPT/HCPCS: 70450; 71010; 71260; 72125; 74177; 76700; G0378; 82947-QW; 96374; J0692; J1170; J2405; J3010; J3370; Q9967

== ENCOUNTER 2016-11-09 22:51 | Inpatient (IN) | payer BC, OTHER ==
[2016-11-09] MEDS ORDERED: NS 2,200 ML IV ONE (23:12)
[2016-11-09] MEDS ORDERED: fentaNYL 100 MCG/2 ML INJ ONE (23:13)
[2016-11-09] MEDS ORDERED: fentaNYL 100 MCG/2 ML INJ IVP ONE (23:13)
[2016-11-09] MEDS ORDERED: CEFEPIME HCL 2 GM in D5W 100 ML IV ONE (23:14)
--- NOTE | 2016-11-09 23:18 | EDPHY ---
H & P Stated Complaint: body aches; stage IV pancreatic cancer Time Seen by Provider: 11/09/16 22:59 HPI/ROS: HPI The patient presents with abdominal and back pain which radiates throughout his body including his upper extremities and neck. The pain began this morning the was manageable and about 2 hours ago became much worse. He describes the sensation as a "gas bubble" and he cannot seem to get comfortable. He had loose stool earlier today. He has not had any vomiting. He has had aches before but never quite like this. He says he is feeling somewhat loopy. His blood pressure has been low. The patient has stage IV pancreatic cancer and last had chemotherapy 2 days ago on November 07. Required some sort of infusion 5 days ago. He is followed by Dr. Lincoln Coyne. REVIEW OF SYSTEMS Constitutional: No fever, no chills. Eyes: No discharge. ENT: No sore throat. Cardiovascular: No chest pain, no palpitations. Respiratory: No cough, no shortness of breath. Gastrointestinal: See HPI Genitourinary: No hematuria. Musculoskeletal: No back pain. Skin: No rashes. Neurological: No headache. PMHx: Pancreatic cancer, stage IV, metastases to liver diagnosed September 2015, admission in April of 2016 after snowboarding accident with renal contusion Soc Hx: Lives at home with family PHYSICAL General Appearance: Alert, uncomfortable appearing, pacing Eyes: Pupils equal and round no pallor or injection ENT, Mouth: Mucous membranes dry Respiratory: There are no retractions, lungs are clear to auscultation Cardiovascular: Tachycardic rate with regular rhythm Gastrointestinal: Abdomen is soft and non-tender, no masses, bowel sounds normal Neurological: A&O, moves all extremities Skin: Warm and dry, no rashes Musculoskeletal: Neck is supple non tender Extremities: symmetrical, full range of motion Psychiatric: Patient is oriented X 3, there is no agitation Source: Patient, Old records Exam Limitations: No limitations - Personal History Current Tetanus/Diphtheria Vaccine: Yes - Medical/Surgical History Hx Asthma: No Hx Chronic Respiratory Disease: No Hx Diabetes: No Hx Cardiac Disease: No Hx Renal Disease: No Hx Cirrhosis: No Hx Alcoholism: No Hx HIV/AIDS: No Hx Splenectomy or Spleen Trauma: No Other PMH: PMHx: Pancreatic Cx. PSHx: Port Placement - Social History Smoking Status: Never smoked Constitutional: Initial Vital Signs Temperature (C) 36.4 C 11/09/16 22:53 Heart Rate 109 H 11/09/16 22:53 Respiratory Rate 19 11/09/16 22:53 Blood Pressure 73/48 L 11/09/16 22:53 O2 Sat (%) 99 11/09/16 22:53 O2 Delivery Mode Nasal Cannula O2 (L/minute) 2 Allergies/Adverse Reactions: No Known Allergies Allergy (Unverified 04/09/16 03:44) Home Medications: Medication Instructions Recorded Ascorbic Acid [Vitamin C 500 mg 1,000 mg PO DAILY 04/09/16 (*)] Cholecalciferol Vit D3 [Vitamin D3 1,000 units PO DAILY 04/09/16 (*)] Ibuprofen [Motrin (*)] 400 mg PO Q2D PRN 04/09/16 LORazepam [Ativan (*)] 1 mg PO Q4HRS PRN 04/09/16 Lipase/Protease/Amylase [[place] 1 - 2 each PO TIDMEAL 04/09/16 Dr 16,000 Units Caps] Lipase/Protease/Amylase [[place] 1 each PO TID PRN 04/09/16 Dr 16,000 Units Caps] Losartan Potassium [Cozaar] 100 mg PO DAILY 04/09/16 Megestrol Acetate [Megace] 800 mg PO DAILY PRN 04/09/16 Multivitamins [Multivitamin (*)] 1 each PO DAILY 04/09/16 [place]-3 Fatty Acids [Fish Oil 1000 1,000 mg PO DAILY 04/09/16 mg (*)] Ondansetron [Ondansetron Odt] 8 mg PO Q8HRS PRN 04/09/16 Vitamin B Complex [B Complex] 1 each PO DAILY 04/09/16 Acetaminophen [Tylenol 325mg (*)] 650 mg PO Q4HRS PRN #0 tab 04/10/16 CYCLOBENZAPRINE HCL [Flexeril] 5 mg PO TIDPRN PRN #10 tab 04/10/16 Polyethylene Glycol 3350 [Miralax 17 gm PO DAILY PRN #0 pkt 04/10/16 17 gm (*)] Sennosides/Docusate Sodium 1 - 2 tab PO BID #0 tab 04/10/16 [Senokot-S] Zolpidem Tartrate [Ambien 10 mg] 10 mg PO HS #5 tablet 04/10/16 oxyCODONE IR [Oxycodone Ir (*)] 5 - 10 mg PO Q3HRS PRN #20 tab 04/10/16 Medical Decision Making - Diagnostics Imaging Results: Imaging Impressions Chest X-Ray 11/09/16 23:13 Impression: Chest negative for acute abnormality with no infection source identified.. Abdomen CT 11/09/16 23:14 Impression: 1. Pancreatic head mass has increased in size and presumably is compressing the fourth portion of the duodenum resulting in marked distention of the stomach as well as the duodenum proximal to the fourth portion. 2. Progression in hepatic metastatic disease. 3. See above report for additional findings. Results called and discussed with Angelina Rosenberg MD on 11/10/2016 at 0:33 Imaging: Discussed imaging studies w/ call manager Radiologist Differential Diagnosis: This is a 56-year-old man with stage IV adenocarcinoma of the pancreas on chemotherapy, last performed 2 days ago who presents with abdominal pain, back pain, hypotension and general malaise and dizziness. This is been present throughout the day today though became worse about 2 hours ago. On arrival he is quite hypotensive, slightly tachycardic, afebrile. His exam is remarkable for discomfort and restlessness. Differential diagnosis includes intra-abdominal sepsis, pneumonia, urinary tract infection, viral illness, aortic dissection. In the emergency room, 2 IV lines were immediately established 1 via the patient 's port. Cultures were drawn. Patient was given 30 cc/kilos IV fluid bolus and was started on cefepime. Patient's blood pressure improved. He was given several doses of fentanyl for pain with improvement in his symptoms. He was given ketamine though this did not help his pain much. Labs were checked and he was anemic with hemoglobin of 6.7 from baseline of about 9 which is our last on record. He was not neutropenic. His coags were relatively normal. Chest x-ray was normal. CT scan of his abdomen pelvis was performed which showed that his pancreatic mass had large in size and was compressing his duodenum which is causing small bowel and gastric distention. I consulted with the [facility] and spoke with Dr. Lee Song. There group will be able to consult in the morning and he does not have any specific recommendations for management overnight. He agrees that we do not need to continue antibiotics at this time given that the patient does not have a fever. I consulted with the hospitalist content administrator Dr. Marcano, we plan to admit the patient to the step-down unit. We placed an NG tube with some improvement in his symptoms. However there was dark blood suctioned. He was given a dose of Protonix. Critical Care Time: CRITICAL CARE Critical care time spent by me, Dr. Rosenberg, exclusively with this patient was 60 minutes, exclusive of PA time and exclusive of procedures. The organ system at risk was cardiac and I gave IV fluids, blood transfusion, transferred the patient to the step-down unit to prevent worsening of the patients condition. - Data Points Laboratory Results: Laboratory Results 11/09/16 23:24 11/09/16 23:24 11/10/16 11/10/16 11/09/16 01:00 00:25 23:24 WBC RBC Hgb Hct MCV MCH MCHC RDW Plt Count MPV Neut % (Auto) Lymph % (Auto) [place] % (Auto) Eos % (Auto) Baso % (Auto) Nucleat RBC Rel Count Absolute Neuts (auto) Absolute Lymphs (auto) Absolute Monos (auto) Absolute Eos (auto) Absolute Basos (auto) Absolute Nucleated RBC Immature Gran % Immature Gran # Platelet Estimate Hypochromasia Tear Drop Cells Smear Review By PT INR APTT VBG Lactic Acid Sodium 134 mEq/L mEq/L (134-144) Potassium 4.4 mEq/L mEq/L (3.5-5.2) Chloride 103 mEq/L mEq/L (97-110) Carbon Dioxide 21 mEq/l L mEq/l (22-31) Anion Gap 10 mEq/L mEq/L (8-16) BUN 20 mg/dL mg/dL (7-23) Creatinine 0.6 mg/dL L mg/dL (0.7-1.3) Estimated GFR > 60 Glucose 123 mg/dL H mg/dL (70-100) Calcium 8.3 mg/dL L mg/dL (8.5-10.4) Total Bilirubin 1.3 mg/dL mg/dL (0.1-1.4) Conjugated Bilirubin 0.3 mg/dL mg/dL (0.0-0.5) Unconjugated Bilirubin 1.0 mg/dL mg/dL (0.0-1.1) AST 48 IU/L IU/L (17-59) ALT 59 IU/L IU/L (21-72) Alkaline Phosphatase 284 IU/L H IU/L (38-126) Creatine Kinase 24 IU/L IU/L (0-224) Total Protein 5.2 g/dL L g/dL (6.3-8.2) Albumin 3.1 g/dL L g/dL (3.5-5.0) Patient ABO/Rh A POSITIVE Antibody Screen NEGATIVE Crossmatch IS Only See Detail 11/09/16 11/09/16 11/09/16 23:24 23:24 23:24 WBC 8.67 10^3/uL 10^3/uL (3.80-9.50) RBC 2.38 10^6/uL L 10^6/uL (4.40-6.38) Hgb 6.7 g/dL L g/dL (13.7-17.5) Hct 21.0 % L % (40.0-51.0) MCV 88.2 fL fL (81.5-99.8) MCH 28.2 pg pg (27.9-34.1) MCHC 31.9 g/dL L g/dL (32.4-36.7) RDW 16.4 % H % (11.5-15.2) Plt Count 182 10^3/uL 10^3/uL (150-400) MPV 11.6 fL fL (8.7-11.7) Neut % (Auto) 72.5 % % (39.3-74.2) Lymph % (Auto) 20.3 % % (15.0-45.0) Dar[place] % (Auto) 3.9 % L % (4.5-13.0) Eos % (Auto) 2.7 % % (0.6-7.6) Baso % (Auto) 0.1 % L % (0.3-1.7) Nucleat RBC Rel Count 0.0 % % (0.0-0.2) Absolute Neuts (auto) 6.29 10^3/uL 10^3/uL (1.70-6.50) Absolute Lymphs (auto) 1.76 10^3/uL 10^3/uL (1.00-3.00) Absolute Monos (auto) 0.34 10^3/uL 10^3/uL (0.30-0.80) Absolute Eos (auto) 0.23 10^3/uL 10^3/uL (0.03-0.40) Absolute Basos (auto) 0.01 10^3/uL L 10^3/uL (0.02-0.10) Absolute Nucleated RBC 0.00 10^3/uL 10^3/uL (0-0.01) Immature Gran % 0.5 % % (0.0-1.1) Immature Gran # 0.04 10^3/uL 10^3/uL (0.00-0.10) Platelet Estimate ADEQUATE (ADEQ) Hypochromasia 1+ H Tear Drop Cells 1+ H Smear Review By Pending PT 16.2 SEC H SEC (12.0-15.0) INR 1.30 H (0.83-1.16) APTT 26.2 SEC SEC (23.0-38.0) VBG Lactic Acid 2.0 mmol/L mmol/L (0.7-2.1) Sodium Potassium Chloride Carbon Dioxide Anion Gap BUN Creatinine Estimated GFR Glucose Calcium Total Bilirubin Conjugated Bilirubin Unconjugated Bilirubin AST ALT Alkaline Phosphatase Creatine Kinase Total Protein Albumin Patient ABO/Rh Antibody Screen Crossmatch IS Only Medications Given: Discontinued Medications Fentanyl (Sublimaze) 100 mcg IVP EDNOW ONE Stop: 11/09/16 23:14 Last Admin: 11/09/16 23:25 Dose: 100 mcg Fentanyl (Sublimaze) 100 mcg IVP EDNOW ONE Stop: 11/10/16 00:17 Last Admin: 11/10/16 00:32 Dose: 100 mcg Sodium Chloride (Ns) 2,200 mls @ 4,400 mls/hr 30 ml/kg infuse over 30 min ( 2200 ml) IV EDNOW ONE PRN Reason: Protocol Stop: 11/09/16 23:41 Last Admin: 11/09/16 23:25 Dose: 2,200 mls Cefepime HCl 2 gm/ Dextrose 100 mls @ 200 mls/hr IV EDNOW ONE PRN Reason: Protocol Stop: 11/09/16 23:43 Last Admin: 11/09/16 23:43 Dose: 100 mls Pantoprazole Sodium 80 mg/ (Sodium Chloride) 100 mls @ 200 mls/hr IV ONCE ONE Stop: 11/10/16 01:27 Last Admin: 11/10/16 01:38 Dose: 100 mls Sodium Chloride (Ns) 1,000 mls @ 250 mls/hr IV ONCE ONE Stop: 11/10/16 05:32 Last Admin: 11/10/16 02:41 Dose: 1,000 mls Ketamine HCl (Ketamine) 15 mg 0.2 mg/kg (15 mg) IVP EDNOW ONE Stop: 11/09/16 23:47 Last Admin: 11/09/16 23:57 Dose: 15 mg Departure - Departure Disposition: [facility] Inpatient Acute Clinical Impression: Stage IV adenocarcinoma of pancreas, Sleep apnea, obstructive, Gastric distention Hypotension Qualifiers: Hypotension type: unspecified hypotension type Qualified Code(s): I95.9 - Hypotension, unspecified GI bleed Qualifiers: GI bleed type/associated pathology: unspecified gastrointestinal hemorrhage type Qualified Code(s): K92.2 - Gastrointestinal hemorrhage, unspecified Condition: Critical
[2016-11-09] MEDS ORDERED: IOPAMIDOL (ISOVUE-300) 100 ML BTL ONE (23:20)
[2016-11-09 23:35] LABS: ADD DIFF? NO; ADD MORPH? YES; ADD SCAN? NO; ATYPICAL LYMPHOCYTE FLAG 0 (0-99); FRAGMENT RBC FLAG 20 (0-99); LEFT SHIFT FLG 0 (0-99); LIPEMIA HEMOLYSIS FLAG 80 (0-99); PLATELET CLUMPS FLAG 0 (0-99); PLATELET COUNT 182 10^3/uL (150-400)
[2016-11-09 23:40] LABS: % IMMATURE GRANULYOCYTES 0.5 % (0.0-1.1); ABSOLUTE IMMATURE GRANULOCYTES 0.04 10^3/uL (0.00-0.10); MEAN CELL HEMOGLOBIN 28.2 pg (27.9-34.1); MEAN CELL HEMOGLOBIN CONCENTR. 31.9 g/dL (32.4-36.7); MEAN CELL VOLUME 88.2 fL (81.5-99.8); MEAN PLATELET VOLUME 11.6 fL (8.7-11.7); RED BLOOD CELL COUNT 2.38 10^6/uL (4.40-6.38); RED CELL DISTRIBUTION WIDTH 16.4 % (11.5-15.2)
[2016-11-09 23:41] LABS: HEMOGLOBIN 6.7 g/dL (13.7-17.5)
[2016-11-09 23:45] LABS: APTT 26.2 SEC (23.0-38.0); INR 1.3 (0.83-1.16); PROTIME(PATIENT) 16.2 SEC (12.0-15.0)
[2016-11-09] MEDS ORDERED: KETAMINE 100 MG/10 ML SYR IVP ONE (23:46)
[2016-11-09 23:47] LABS: ALANINE AMINOTRANSFERASE 59 IU/L (21-72); ALBUMIN 3.1 g/dL (3.5-5.0); ALKALINE PHOSPHATASE 284 IU/L (38-126); ANION GAP 10 mEq/L (8-16); ASPARTATE AMINOTRANSFERASE 48 IU/L (17-59); BILIRUBIN,TOTAL 1.3 mg/dL (0.1-1.4); BILIRUBIN-CONJUGATED 0.3 mg/dL (0.0-0.5); CALCIUM 8.3 mg/dL (8.5-10.4); CARBON DIOXIDE 21 mEq/l (22-31); CHLORIDE 103 mEq/L (97-110); CREATININE 0.6 mg/dL (0.7-1.3); GLOMERULAR FILTRATION RATE > 60; GLUCOSE 123 mg/dL (70-100); POTASSIUM 4.4 mEq/L (3.5-5.2); SODIUM 134 mEq/L (134-144); TOTAL PROTEIN 5.2 g/dL (6.3-8.2)
[2016-11-10] MEDS ORDERED: fentaNYL 100 MCG/2 ML INJ IVP ONE (00:16)
[2016-11-10 00:19] LABS: HYPOCHROMIA 1+; PLATELET ESTIMATE ADEQUATE (ADEQ)
[2016-11-10] MEDS ORDERED: PANTOPRAZOLE SODIUM 80 MG in NS 100 ML IV ONE (00:58)
[2016-11-10] MEDS ORDERED: ACETAMINOPHEN 325 MG TAB PO PRN (01:33)
[2016-11-10] MEDS ORDERED: NS 1,000 ML IV ONE (01:33)
[2016-11-10] MEDS ORDERED: ONDANSETRON 4 MG/2 ML VIAL IVP PRN ×2 (01:33→12:26)
[2016-11-10] MEDS ORDERED: ONDANSETRON DISINTEGRATING 4 MG TAB PO PRN (01:33)
--- NOTE | 2016-11-10 01:43 | PDGENHP ---
History and Physical - Chief Complaint Abdominal pain - History of Present Illness Mr. Dalton Jain is a 56 yo M w/ Stage IV pancreatic adenocarcinoma presenting with 1 day of abdominal pain and lightheadedness. He describes severe RUQ/epi-gastric abdominal pain starting on the morning prior to admission. Additionally, he felt weak, lightheaded, short of breath, and noted blood in his stool. He last had chemotherapy on Monday. He denies fever, chills , cough, dysuria, and headache. He was noted to be hypotensive upon arrival in the ED. History Information - Allergies/Home Medication List Allergies/Adverse Reactions: No Known Allergies Allergy (Unverified 04/09/16 03:44) Home Medications: Ascorbic Acid [Vitamin C 500 mg (*)] 1,000 mg PO DAILY 04/09/16 [Last Taken ] Cholecalciferol Vit D3 [Vitamin D3 (*)] 1,000 units PO DAILY 04/09/16 [Last Taken 04/08/16] Ibuprofen [Motrin (*)] 400 mg PO Q2D PRN 04/09/16 [Last Taken 04/08/16] LORazepam [Ativan (*)] 1 mg PO Q4HRS PRN 04/09/16 [Last Taken 04/08/16] Lipase/Protease/Amylase [Ricardo Mooney 16,000 Units Caps] 1 - 2 each PO TIDMEAL [Last Taken 04/08/16] Lipase/Protease/Amylase [Ricardo Mooney 16,000 Units Caps] 1 each PO TID PRN [Last Taken 04/08/16] Losartan Potassium [Cozaar] 100 mg PO DAILY 04/09/16 [Last Taken 04/08/16] Megestrol Acetate [Megace] 800 mg PO DAILY PRN 04/09/16 [Last Taken Unknown] Multivitamins [Multivitamin (*)] 1 each PO DAILY 04/09/16 [Last Taken 04/08/16] [place]-3 Fatty Acids [Fish Oil 1000 mg (*)] 1,000 mg PO DAILY 04/09/16 [Last Taken 04/08/16] Ondansetron [Ondansetron Odt] 8 mg PO Q8HRS PRN 04/09/16 [Last Taken 04/08/16] Vitamin B Complex [B Complex] 1 each PO DAILY 04/09/16 [Last Taken 04/08/16] I have personally reviewed and updated: family history, medical history - Past Medical History cancer Additional medical history: Stage IV Pancreatic ca: dx 09/2015, initiated on chemo in 10/2015 via R chest wall chemoport; follows with [place] [facility]ology group. Hospitalized in 11/2015 for abdominal infection, treated with short course of antibiotics. - Surgical History Reports: no pertinent surgical hx Additional surgical history: knee arthroscopy. chemoport placement 10/2015 - Family History Positive for: non-pertinent. 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 Lives with in [place]. Review of Systems ROS: 10pt was reviewed & negative except for what was stated in HPI & below Physical Exam Temp Pulse Resp BP Pulse Ox 36.4 C 94 16 96/73 L 93 11/09/16 22:53 11/10/16 00:00 11/10/16 00:00 11/10/16 00:00 11/10/16 00:00 Constitutional: chronically ill appearing, uncomfortable Eyes: PERRL, EOMI Ears, Nose, Mouth, Throat: moist mucous membranes, no oral mucosal ulcers Cardiovascular: no murmur, rub, or gallop, tachycardia Respiratory: no respiratory distress, clear to auscultation Gastrointestinal: tenderness (RUQ, epi-gastric), No guarding, No rebound, No distension Skin: warm, no rashes or abrasions Musculoskeletal: full muscle strength, no muscle tenderness Neurologic: AAOx3, CN II-XII Intact Psychiatric: interacting appropriately, not anxious Lab Data & Imaging Review 11/09/16 23:24 11/09/16 23:24 WBC 8.67 10^3/uL (3.80-9.50) 11/09/16 23:24 RBC 2.38 10^6/uL (4.40-6.38) L 11/09/16 23:24 Hgb 6.7 g/dL (13.7-17.5) L 11/09/16 23:24 Hct 21.0 % (40.0-51.0) L 11/09/16 23:24 MCV 88.2 fL (81.5-99.8) 11/09/16 23: MCH 28.2 pg (27.9-34.1) 11/09/16 23:24 MCHC 31.9 g/dL (32.4-36.7) L 11/09/16 23: RDW 16.4 % (11.5-15.2) H 11/09/16 23: Plt Count 182 10^3/uL (150-400) 11/09/16 23: MPV 11.6 fL (8.7-11.7) 11/09/16 23:24 Neut % (Auto) 72.5 % (39.3-74.2) 11/09/16 23: Lymph % (Auto) 20.3 % (15.0-45.0) 11/09/16: [place] % (Auto) 3.9 % (4.5-13.0) L 11/09/16 23: Eos % (Auto) 2.7 % (0.6-7.6) 11/09/16: Baso % (Auto) 0.1 % (0.3-1.7) L 11/09/16: Nucleat RBC Rel Count 0.0 % (0.0-0.2) 11/09/16 23: Absolute Neuts (auto) 6.29 10^3/uL (1.70-6.50) 11/09/16 23: Absolute Lymphs (auto) 1.76 10^3/uL (1.00-3.00) 11/09/16 23: Absolute Monos (auto) 0.34 10^3/uL (0.30-0.80) 11/09/16 23: Absolute Eos (auto) 0.23 10^3/uL (0.03-0.40) 11/09/16 23: Absolute Basos (auto) 0.01 10^3/uL (0.02-0.10) L 11/09/16 23: Absolute Nucleated RBC 0.00 10^3/uL (0-0.01) 11/09/16 23: Immature Gran % 0.5 % (0.0-1.1) 11/09/16 23: Immature Gran # 0.04 10^3/uL (0.00-0.10) 11/09/16 23:24 Platelet Estimate ADEQUATE (ADEQ) 11/09/16 23:24 Hypochromasia 1+ H 11/09/16 23:24 Tear Drop Cells 1+ H 11/09/16 23:24 PT 16.2 SEC (12.0-15.0) H 11/09/16 23:24 INR 1.30 (0.83-1.16) H 11/09/16 23:24 APTT 26.2 SEC (23.0-38.0) 11/09/16 23:24 VBG Lactic Acid 2.0 mmol/L (0.7-2.1) 11/09/16 23:24 Sodium 134 mEq/L (134-144) 11/09/16 23:24 Potassium 4.4 mEq/L (3.5-5.2) 11/09/16 23:24 Chloride 103 mEq/L (97-110) 11/09/16 23:24 Carbon Dioxide 21 mEq/l (22-31) L 11/09/16 23:24 Anion Gap 10 mEq/L (8-16) 11/09/16 23:24 BUN 20 mg/dL (7-23) 11/09/16 23:24 Creatinine 0.6 mg/dL (0.7-1.3) L 11/09/16 23:24 Estimated GFR > 60 11/09/16 23:24 Glucose 123 mg/dL (70-100) H 11/09/16 23:24 Calcium 8.3 mg/dL (8.5-10.4) L 11/09/16 23:24 Total Bilirubin 1.3 mg/dL (0.1-1.4) 11/09/16 23:24 Conjugated Bilirubin 0.3 mg/dL (0.0-0.5) 11/09/16 23:24 Unconjugated Bilirubin 1.0 mg/dL (0.0-1.1) 11/09/16 23:24 AST 48 IU/L (17-59) 11/09/16 23:24 ALT 59 IU/L (21-72) 11/09/16 23:24 Alkaline Phosphatase 284 IU/L (38-126) H 11/09/16 23:24 Creatine Kinase 24 IU/L (0-224) 11/10/16 00:25 Total Protein 5.2 g/dL (6.3-8.2) L 11/09/16 23:24 Albumin 3.1 g/dL (3.5-5.0) L 11/09/16 23:24 Crossmatch IS Only See Detail 11/10/16 01:00 Imaging Review: CT Abdomen with increase in size of pancreatic mass and subsequent compression of duodenum with gastric distention. Assessment & Plan Assessment: Mr Dalton Jain is a 56 yo M w/ stage IV pancreatic adenocarcinoma presenting with hypotension due to acute blood loss anemia, presumably related to pancreatic cancer. Plan: 1. Hypotension - 2/2 hypovolemia from blood loss; Hgb 6.7 on admission. No fever , leukocytosis, or localizing symptoms to suggest infection; lactate 2.0. He did receive Cefepime x1 in ED, will not continue. Blood cultures drawn. Will manage with IVF and pRBCs. 2. Acute blood loss anemia - Hgb 6.7 on admission, baseline appears to be ~9. > 200 mL of fresh blood noted upon placement of NGT; also with blood in stool. Presumably related to cancer involvement of GI tract. Aggressive IVF, transfusing 1 unit pRBC now and will check H/H post-transfusion. Hemodynamically stable after IVF. GI consult in AM unless his condition worsens. 3. Stage IV pancreatic adenocarcinoma - Last chemotherapy on Monday prior to admission, which may have contributed to acute change. Oncology service aware and will see patient in the Morning. Dilaudid IV for pain control. Diet - NPO Code - Full Ppx - SCDs Dispo - Admit to inpatient status in step-down for frequent monitoring, anticipate >2 MN.
[2016-11-10] MEDS: HYDROmorphONE/DILAUDID 1 MG/ML SYR IVP PRN ×2 (02:25→08:07)
[2016-11-10] MEDS ORDERED: NALOXONE HCL 0.4 MG/ML INJ IVP PRN ×2 (02:54→12:26)
[2016-11-10] MEDS ORDERED: HYDROmorphONE/DILAUDID 6 MG/30 ML PCA IV ONE (02:54)
[2016-11-10] MEDS: HYDROmorphONE/DILAUDID 6 MG/30 ML PCA IV PRN (03:14)
[2016-11-10 03:17] LABS: COLOR YELLOW; LEUKOCYTE ESTERASE,URINE NEGATIVE (NEGATIVE); NITRITE,URINE NEGATIVE (NEGATIVE)
[2016-11-10 06:47] LABS: % IMMATURE GRANULYOCYTES 0.4 % (0.0-1.1); ABSOLUTE IMMATURE GRANULOCYTES 0.02 10^3/uL (0.00-0.10); ADD DIFF? NO; ADD MORPH? YES; ADD SCAN? NO; ATYPICAL LYMPHOCYTE FLAG 0 (0-99); FRAGMENT RBC FLAG 20 (0-99); HEMATOCRIT 19.2 % (40.0-51.0); LEFT SHIFT FLG 0 (0-99); LIPEMIA HEMOLYSIS FLAG 80 (0-99); MEAN CELL HEMOGLOBIN 28.6 pg (27.9-34.1); MEAN CELL HEMOGLOBIN CONCENTR. 31.8 g/dL (32.4-36.7); MEAN CELL VOLUME 90.1 fL (81.5-99.8); MEAN PLATELET VOLUME 11.1 fL (8.7-11.7); PLATELET CLUMPS FLAG 0 (0-99); PLATELET COUNT 122 10^3/uL (150-400); RED BLOOD CELL COUNT 2.13 10^6/uL (4.40-6.38); RED CELL DISTRIBUTION WIDTH 15.6 % (11.5-15.2)
[2016-11-10 06:53] LABS: HEMOGLOBIN 6.1 g/dL (13.7-17.5)
[2016-11-10 06:56] LABS: INR 1.42 (0.83-1.16); PROTIME(PATIENT) 17.3 SEC (12.0-15.0)
[2016-11-10 06:58] LABS: ANION GAP 6 mEq/L (8-16); CALCIUM 7.3 mg/dL (8.5-10.4); CARBON DIOXIDE 21 mEq/l (22-31); CHLORIDE 107 mEq/L (97-110); CREATININE 0.4 mg/dL (0.7-1.3); GLOMERULAR FILTRATION RATE > 60; GLUCOSE 115 mg/dL (70-100); MAGNESIUM 1.7 mg/dL (1.6-2.3); POTASSIUM 4.4 mEq/L (3.5-5.2); SODIUM 134 mEq/L (134-144)
[2016-11-10 07:34] LABS: PLATELET ESTIMATE DECREASED (ADEQ)
[2016-11-10 07:35] LABS: HYPOCHROMIA 1+
[2016-11-10] MEDS ORDERED: PROPOFOL 200 MG/20 ML VIAL ONE ×2 (11:04→11:44)
[2016-11-10] MEDS ORDERED: fentaNYL 100 MCG/2 ML INJ ONE ×2 (11:04→16:32)
--- NOTE | 2016-11-10 11:18 | PDANEPAE ---
ANE History of Present Illness h/o pancreatic adenoca with upper GI bleed, s/p 4 units PRBC ANE Past Medical History - Cardiovascular History Hx Hypertension: No Hx Arrhythmias: No Hx Chest Pain: No Hx Coronary Artery / Peripheral Vascular Disease: No Hx CHF / Valvular Disease: No Hx Palpitations: No - Pulmonary History Hx Oxygen in Use at Home: No Hx Sleep Apnea: Yes Sleep Apnea Screening Result - Last Documented: Positive - Endocrine History Hx Diabetes: No - Cancer History Hx Cancer: Yes Cancer History Comment: pancreatic adenoca - Chronic Pain History Chronic Pain: Yes ANE Review of Systems - Exercise capacity METS (RN): 4 METS ANE Patient History - Allergies Allergies/Adverse Reactions: No Known Allergies Allergy (Unverified 04/09/16 03:44) - Home Medications Home medications: home medication list seen and reviewed Home Medications: LORazepam [Ativan (*)] 1 mg PO Q6HRS PRN 04/09/16 [Last Taken 11/09/16] Lipase/Protease/Amylase [Ricardo Mooney 16,000 Units Caps] 1 - 2 each PO TIDMEAL [Last Taken 11/09/16] Lipase/Protease/Amylase [Ricardo Mooney 16,000 Units Caps] 1 each PO TID PRN [Last Taken 11/09/16] Losartan Potassium [Cozaar] 100 mg PO BID 04/09/16 [Last Taken 11/09/16] Multivitamins [Multivitamin (*)] 1 each PO DAILY 04/09/16 [Last Taken 11/09/16] Cyclobenzaprine [Flexeril 10 MG (*)] 10 mg PO TID PRN 11/10/16 [Last Taken Unknown] Ferrous Sulfate [Ferrous Sulf 325 MG (*)] 325 mg PO DAILY 11/10/16 [Last Taken 11/09/16] Hydrocodone/Acetaminophen [[place] 5/325 (*)] 1 each PO Q4HRS 11/10/16 [Last Taken 11/09/16] Naproxen Sodium [Aleve 220 MG (*)] 440 mg PO DAILY 11/10/16 [Last Taken 11/09/16 ] Prochlorperazine Maleate [Compazine 10mg (*)] 10 mg PO Q6HRS PRN 11/10/16 [Last Taken 11/09/16] Sennosides/Docusate Sodium [Senokot-S] 1 - 2 tab PO DAILY PRN 11/10/16 [Last Taken Unknown] Simethicone [Gas-X] 250 mg PO TID 11/10/16 [Last Taken 11/09/16] ZOLPIDEM TARTRATE [Ambien CR 12.5 mg] 1.5 tab PO HS 11/10/16 [Last Taken ] - NPO status NPO Since - Liquids (Date): 11/10/16 NPO Since - Liquids (Time): 00:00 NPO Since - Solids (Date): 11/10/16 NPO Since - Solids (Time): 00:00 - Anes Hx Anes Hx: no prior problems - Smoking Hx Smoking Status: Never smoked - Alcohol Use Alcohol Use: None ANE Labs/Vital Signs - Labs Result Diagrams: 11/10/16 06:30 11/10/16 06:30 - Vital Signs Blood Pressure: 100/66 Heart Rate: 85 Respiratory Rate: 11 O2 Sat (%): 95 Height: 175.26 cm Weight: 77.6 kg ANE Physical Exam - Airway Neck exam: FROM Mallampati Score: Class 1 Mouth exam: normal dental/mouth exam - Pulmonary Pulmonary: no respiratory distress - Cardiovascular Cardiovascular: regular rate and rhythym - ASA Status ASA Status: IV, E ANE Anesthesia Plan Anesthesia Plan: general endotracheal anesthesia
--- NOTE | 2016-11-10 11:45 | GCON ---
[f rep st] CONSULTATION [facility] MAINTENANCE CONSULTATION. REASON FOR PRESENTATION: Abdominal pain. HISTORY OF PRESENT ILLNESS: The patient is a 56-year-old white male with a past medical history of stage IV pancreatic cancer. He presents with complaints of abdominal pain and lightheadedness. Ove r the last several days, he has noticed increasing weakness, as well as lightheadedness. There has been some associated shortness of breath. His most recent chemotherapy was Monday. In discussion w ith patient, he states that he is currently uncomfortable with no jaime pain. There is no fever or night sweats. He is scheduled for endoscopy today. PAST MEDICAL HISTORY: Significant for stage IV pancreatic cancer for which he is undergoing chemoth erapy. PAST SURGERIES: Had a port placed, as well as knee arthroscopy. ALLERGIES: No known allergies to medications. SOCIAL HISTORY: No history of tobacco use. No history of alcohol use. 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 He is and lives with in [place]. He has excellent family support. PHYSICAL EXAMINATION: VITAL SIGNS: Blood pressure is 100/66, pulse 85, respirations are 11, temper ature is 36.5, oxygen saturation 95% on room air. GENERAL: He is a thin 56-year-old white male, wh o is resting comfortably with mild abdominal pain. HEENT: Eyes: PERRL. EOMI. Throat shows no negro thema or tonsillar hypertrophy. NECK: Supple. No cervical adenopathy. HEART: Regular rate and r hythm without murmurs, rubs, or gallops. LUNGS: Diminished breath sounds. No wheeze. ABDOMEN: D istended, diffusely tender. Bowel sounds are diminished. EXTREMITIES: No clubbing, cyanosis, or e kee. LABORATORIES: White count is 5.4, hemoglobin 6.1, hematocrit 19, platelet count is 122. Sodium 134 , potassium 4.4, chloride 107, CO2 is 21, BUN is 17, creatinine 0.4, glucose is 115. Urinalysis is negative. IMAGING: Abdominal CT shows pancreatic head mass, increased in size, is compressing the fourth port ion of duodenum with distention of the stomach. There are hepatic metastatic findings. Chest x-ray is negative. IMPRESSION: 1. Stage IV pancreatic cancer. 2. Duodenal obstruction with stomach distention. 3. Anemia. 4. Hypotension, mostly resolved. RECOMMENDATIONS: 1. Patient scheduled for endoscopy today. 2. Adequate pain control. 3. DVT and PE prophylaxis. 4. Stress ulcer prophylaxis. 5. Continue the majority of his home medications. /[id number]/MODL
--- NOTE | 2016-11-10 12:05 | GCON ---
[f rep st] CONSULTATION GI CONSULTATION DATE OF CONSULTATION: 11/10/2016 REASON FOR CONSULTATION: Upper GI bleed with posthemorrhagic anemia. HISTORY OF PRESENT ILLNESS: The patient is a 56-year-old gentleman who is followed by Dr. Coyne in [place] at [facility] for stage IV pancreatic cancer which presented approximately 6 months ago. He was admitted to the hospital late last night with a 12-hour history of severe epigastric and right upper quadrant abdominal pain followed by nausea and passage of a maroon stool. This was associated with weakness and dizziness and some mild shortness of breath. NG tube was placed in the emergency room, yielded maroon blood. He was noted to be anemic with a hemoglobin of 6.7. With hydration, this morning this had fallen to 6.1. He is on his 4th unit of packed red blood cells and is on IV PPI therapy. I was asked by Dr. Dennis to see the patient for evaluation and treatment of his GI bleed. The patient was on occasional ibuprofen, otherwise no NSAIDs. MEDICATIONS: Prior to admission included vitamin C 1000 mg daily, vitamin D3 1000 units daily, ibuprofen 400 mg p.o. p.r.n. aches and pains, Lorazepam 1 mg p.o. q.4 hours p.r.n. anxiety, pancreatic enzymes 52158 units 2 caps t.i.d. with meals, losartan 100 mg p.o. daily, Megace 800 mg p.o. p.r.n., multivitamin 1 daily, fish oil 1000 mg p.o. daily, ondansetron 8 mg p.o. q.8 hours p.r.n., and B complex 1 tablet daily. ALLERGIES: He has no known drug allergies. PAST MEDICAL HISTORY: Significant for stage IV pancreatic cancer diagnosed in September of 2015. He received chemotherapy via a right chest wall chemo port through [facility]. PAST SURGICAL HISTORY: Significant for MediPort in October 2015 and knee arthroscopy. FAMILY HISTORY: Negative for peptic ulcer disease or GI malignancies. SOCIAL HISTORY: He has never smoked. He does not drink alcohol. He denies any heavy NSAID use. 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 REVIEW OF SYSTEMS: Other than nausea, epigastric pain, dizziness and melena per HPI, were negative for comprehensive review of systems on my examination today. PHYSICAL EXAMINATION: VITAL SIGNS: His temperature is 36.5 Celsius, pulse is 85 regular, blood pressure 100/66, respiratory rate is 12, O2 saturation 95% on room air. GENERAL: Asthenic looking gentleman with an NG tube in his right naris with maroon blood in its channel. INTEGUMENT: Warm, dry, with no rashes. HEENT: Head atraumatic, normocephalic. Pupils equal, round, reactive to light. EOMs intact. Sclerae nonicteric. Nares patent. NG tube in right naris. Mucous membranes moist. Dentition good. NECK: Supple. Trachea midline. PULMONARY: Lungs were clear to percussion and auscultation. MediPort in the right chest wall. CARDIOVASCULAR: Regular rhythm and rate, normal S1, S2 without murmur. Peripheral pulses strong bilaterally. No pedal edema. GASTROINTESTINAL: Positive bowel sounds. No liver or spleen tip palpable. No masses or tenderness noted. EXTREMITIES: Without deformity. NEURO: Patient was alert and oriented x3. There are no focal neurologic deficits. LABS: Hemoglobin 6.1, hematocrit 19.2, platelets 122,000 on 11/10/2016 at 6:30 a.m. White count 5.49, pro time 17.3, INR 1.42, electrolytes normal. BUN 17, creatinine 0.4. LFTs normal with exception of alkaline phosphatase of 284. Albumin 3.2. Urinalysis unremarkable. Chest x-ray shows right-sided central venous catheter/MediPort in stable position. Normal heart and mediastinum. Normal pulmonary vasculature. No pleural effusions. Abdominal CT scan revealed pancreatic head mass with increased size as compared to prior CT scan on 04/09/2016, with evidence of compression of the first portion of the duodenum with distention of the stomach as well as the proximal duodenum. There is progressive hepatic metastases noted. IMPRESSION: 1. Upper gastrointestinal bleed, likely source is pancreatic tumor albeit could also represent peptic ulcer disease. 2. Post hemorrhagic anemia, presently hemodynamically stable after 4 units of packed red blood cells. 3. Stage IV metastatic pancreatic cancer with progression since diagnosis 1 year ago. RECOMMENDATIONS: 1. N.p.o. 2. IV proton pump inhibitor therapy. 3. Will do emergent esophagogastroduodenoscopy with propofol anesthesia at the bedside in the ICU today due to the critical nature of this patient's condition . Dr. Yousif will perform procedure. 4. If esophagogastroduodenoscopy does not find a bleeding site that we can intervene successfully with, would then recommend that patient go to Interventional Radiology for angiography and ablation of bleeding site. 5. Would recommend consultation with [facility] while patient is in the hospital. /[id number]/MODL MTDD
--- NOTE | 2016-11-10 12:18 | SUROPNOTE ---
CJ Operative Report - Surgery Brief EGD/enteroscopy note Indication: melena, GI bleed Complications: none Anesthesia: general Findings: Esophagus: normal mucosa, no source of bleeding seen Stomach: large amount of old blood obscuring views in fundus/body. No active bleeding or fresh blood. No ulcers and normal antrum. Duodenum: some red blood seen but washed away and no evidence of active bleeding. Normal mucosa to 4th portion of duodenum. Diffiuclt to advance farther due to gastric looping. Impression: no source of bleeding seen and no evidence of tumor mucosal invasion into duodenum. Considerations include hemobilia, or upper GI bleeding with lesion not found due to being obscured in proximal stomach by old blood or being small lesion not visible on this exam. Recs: Obtain bleeding scan to help localize bleeding. Consider IR if rebleeds vs 2nd look endoscopy. Suspect IR may be of more utility. Would monitor LFT's given hemobilia if present could lead to biliary obstruciton.
[2016-11-10] MEDS ORDERED: LR 500 ML IV PRN (12:26)
[2016-11-10] MEDS ORDERED: PROMETHAZINE HCL 25 MG/ML INJ IVP PRN (12:26)
[2016-11-10] MEDS ORDERED: fentaNYL 100 MCG/2 ML INJ IVP PRN (12:26)
--- NOTE | 2016-11-10 12:26 | POSTANESTH ---
Post Anesthetic Evaluation Cardiovascular Status: Normal, Stable Respiratory Status: Normal, Stable Level of Consciousness/Mental Status: Can Participate in Eval Pain Control: Adequate, Prn Tx Ordered Nausea/Vomiting Control: Adequate, Prn Tx Ordered Complications Possibly Related to Anesthesia: None Noted
[2016-11-10] MEDS: PANTOPRAZOLE SODIUM 40 MG in NS 100 ML IV SCH ×2 (12:56→22:34)
[2016-11-10 13:04] LABS: HEMATOCRIT 22.8 % (40.0-51.0); HEMOGLOBIN 7.6 g/dL (13.7-17.5)
--- NOTE | 2016-11-10 13:06 | HOSPPROG ---
Hospitalist Progress Note Assessment/Plan: 56 yo M w pancreatic CA here w UGIB UGIB: severe s/p 4 units egd w blood but no source so no therapy ON PPI endorses some NSAIDSM< no steroids 1. repeat hct now 2. order tagged rbc scan 3. IR vs rescope if rapid rebleeding pancreatic CA: getting weekly chemotherapy will have oncology see proph: no pharm VTE proph given bleeding code: full risk: high Subjective: egd w blood but no clear sopurce of bleeding. case d/w dr beth Objective: Vital Signs Temp Pulse Resp BP Pulse Ox 36.5 C 85 11 L 100/66 95 11/10/16 10:28 11/10/16 11:19 11/10/16 11:19 11/10/16 11:19 11/10/16 11:19 Laboratory Results 11/10/16 06:30 11/09/16 11/10/16 11/11/16 05:59 05:59 05:59 Intake Total 3994 Output Total 1000 300 Balance 2994 -300 PT 17.3 SEC (12.0-15.0) H 11/10/16 06:30 INR 1.42 (0.83-1.16) H 11/10/16 06:30 - Physical Exam Constitutional: no apparent distress, appears nourished Eyes: PERRL, EOMI Ears, Nose, Mouth, Throat: other (NGT w dark red blood) Cardiovascular: regular rate and rhythym, no murmur, rub, or gallop Respiratory: no respiratory distress, no rales or rhonchi, clear to auscultation Gastrointestinal: normoactive bowel sounds, soft, non-tender abdomen Genitourinary: no bladder fullness, No coyle in urethra Skin: warm, normal color Musculoskeletal: full muscle strength, no muscle tenderness Neurologic: AAOx3 ICD10 Worksheet Patient Problems: Problems Problem Status Onset GI bleed Acute Gastric distention Acute Hypotension Acute Sleep apnea, obstructive Acute Stage IV adenocarcinoma of pancreas Acute Anemia Acute Fall Acute Hypoxemia Acute
--- NOTE | 2016-11-10 14:33 | SOAPPROG ---
SOAP Progress Note Assessment/Plan: Assessment: 1.) Stage IV Pancreatic Adenocarcinoma- Diagnosis in September,. Initial staging T4N1M1 disease, primary in the pancreatic body. Initial Tx with the FOLFIRINOX regimen (5FU +Irinotecan + Oxaliplatin) which held disease stable, until disease progression documented in the past several months. Now on Second Line Tx with Abraxane/Gemcitabine, on 3rd cycle. Now receiving Tx with Dr. Diaz, at our [facility] facility. Last Tx with Day 8 Gemcitabine was administered on 11/08/16. His Gemcitabine was dose reduced due to moderate Thrombocytopenia (PLT 67K). CT scan on the ED admission noted, and was compared to prior scan of . He had a more recent scan in September, at a separate facility. His CT shows a pancreatic head mass invading Duodenum and encasing Celiac axis and SMA. He was scheduled for a repeat PET/CT scan later this month. 2.) GIBleed- acute onset- EGD noted and without clearly seen site of blood loss. Followup studies (tagged RBC scan) being considered. Transfusion support noted. Agree with management. Will need to anticipate continue depression and consumption of Platelets from bleeding and from recent chemotherapy. Plan: 1.) Will follow during this hospitalization. 2.) Will forward inhospital reports to [facility] chart for Dr. Diaz's review. I have chart messaged Dr. Coyne, to inform him of this hospitalization. 11/10/16 14:33 Subjective: Dalton feeling better this AM, still with tolerable amt of back pain, which is chronic. Objective: Middle aged WM in NAD, looks pale, sitting upright in bed VSS- borderline ST HEENT- NGT in place, pale, no oral lesions Neck- supple Chest- clear anteriorly CVS- borderline ST, RR, no S3, S4 ABD- BS+, NT, nondistended, no mass or ascites EXT- no edema Labs as noted here. Hgb now up to 7.6 from 6.1 BUN/Cr 17/0.4 CT scan, EGD reports noted. Vital Signs Temp Pulse Resp BP Pulse Ox 36.5 C 85 11 L 100/66 95 11/10/16 10:28 11/10/16 11:19 11/10/16 11:19 11/10/16 11:19 11/10/16 11:19 Laboratory Results 11/10/16 12:50 11/10/16 06:30 11/09/16 11/10/16 11/11/16 05:59 05:59 05:59 Intake Total 3994 Output Total 1000 300 Balance 2994 -300 PT 17.3 SEC (12.0-15.0) H 11/10/16 06:30 INR 1.42 (0.83-1.16) H 11/10/16 06:30 ICD10 Worksheet Patient Problems: Problems Problem Status Onset GI bleed Acute Gastric distention Acute Hypotension Acute Sleep apnea, obstructive Acute Stage IV adenocarcinoma of pancreas Acute Anemia Acute Fall Acute Hypoxemia Acute
[2016-11-10 15:24] LABS: ALBUMIN 2.1 g/dL (3.5-5.0); BILIRUBIN,TOTAL 1.6 mg/dL (0.1-1.4); BILIRUBIN-CONJUGATED 0.4 mg/dL (0.0-0.5); BILIRUBIN-UNCONJUGATED 1.2 mg/dL (0.0-1.1); TOTAL PROTEIN 4.1 g/dL (6.3-8.2)
[2016-11-10] MEDS ORDERED: MIDAZOLAM 2 MG/2 ML VIAL ONE (16:32)
[2016-11-10] MEDS ORDERED: GLUCAGON,HUMAN RECOMBINANT 1 MG VIAL ONE (16:54)
[2016-11-10] MEDS ORDERED: IOPAMIDOL (ISOVUE-370) 150 ML BTL IV ONE (17:37)
[2016-11-10] MEDS ORDERED: IOPAMIDOL (ISOVUE-300) 100 ML BTL ONE (17:37)
--- NOTE | 2016-11-10 18:00 | POSTOPPROG ---
Post Op Note Date of Operation: 11/10/16 Surgeon: Mihai Almazan Anesthesia: IV Sedation Pre-op Diagnosis: Gastrointestinal bleeding. Pancreatic CA Post-op Diagnosis: Same Indication: Endoscopic failure to locate source of bleeding. Procedure: Visceral arteriography. Starclose right femoral access. Findings: Multifocal tumor encasement of arteries. No active bleeding. Inf/Abcess present in the surg proc area at time of surgery?: No EBL: Minimal Complications: 0
--- NOTE | 2016-11-10 20:02 | GPN ---
[f rep st] PROCEDURE NOTE DATE OF PROCEDURE: 11/10/2016 PROCEDURE: Esophagogastroduodenoscopy/enteroscopy. INDICATION: Suspected GI bleed with acute anemia and melena. CONSENT: Informed consent was obtained from the patient after an explanation of risks, benefits, and alternatives to the procedure. MEDICATIONS GIVEN: Per Anesthesia. LEVEL OF ANESTHESIA: General anesthesia with intubation. DESCRIPTION OF EXAM: After the patient was intubated and sedated, the endoscope was advanced under direct vision through the oropharynx, esophagus, stomach, and duodenum. Due to only being able to reach the 2nd portion of the duodenum with the regular upper endoscope due to looping and no clear lesions seen on that exam, the scope was switched for a pediatric colonoscope and this was able to be advanced to approximately the 4th portion of the duodenum. Findings as below. Retroflexion was performed in the stomach, although views in the stomach were poor due to a large amount of old blood and clot which could not be cleared with either NG-tube suction or scope suction. FINDINGS: 1. Esophagus: A small amount of blood was seen in the esophagus, likely related to reflux with NG in place. With removing the NG tube and lavage, no active bleeding or lesion was seen. No varices seen on careful exam. 2. Stomach: Large amount of old blood and clot was seen in the fundus and body of the stomach. This did significantly obscure views in the proximal stomach/fundus. There did not appear to be any fresh red blood in the stomach. The antrum and distal body had no significant mucosal abnormalities or areas of any bleeding. Gastric varices could not be ruled out. 3. Duodenum: The duodenum was initially examined to the 2nd portion and then with changing to a pediatric colonoscope, was examined to approximately the 4th portion. The scope was advanced approximately 25 cm into the duodenum. Some fresh red blood was seen initially on advancing into the duodenum. This was washed away and no active bleeding was seen throughout the duodenum. Bile was present. No clear mucosal lesion or ulceration was seen, either. There was no evidence of duodenal obstruction. IMPRESSION: Old blood in the stomach with a small amount of red blood in the duodenum, which cleared with washing and no obvious source of bleeding seen on today's exam. RECOMMENDATIONS: 1. NG tube to low intermittent suction, given large amount of blood in the stomach. 2. We will maintain n.p.o. for now. 3. Recommend obtaining a bleeding scan, which could be repeated if the patient develops further evidence of active bleeding. 4. If patient appears to be rebleeding, could consider interventional radiology exam, versus repeat upper endoscopy. 5. GI will continue to follow, Dr. Coleman is on tonight/tomorrow. /[id number]/MODL MTDD
[2016-11-10 20:36] LABS: HEMATOCRIT 28.8 % (40.0-51.0); HEMOGLOBIN 9.8 g/dL (13.7-17.5)
[2016-11-11 04:08] LABS: HEMATOCRIT 28.7 % (40.0-51.0); HEMOGLOBIN 9.7 g/dL (13.7-17.5); INR 1.35 (0.83-1.16); PROTIME(PATIENT) 16.7 SEC (12.0-15.0)
[2016-11-11 04:40] LABS: ALBUMIN 2.6 g/dL (3.5-5.0); BILIRUBIN,TOTAL 2.8 mg/dL (0.1-1.4); BILIRUBIN-CONJUGATED 0.5 mg/dL (0.0-0.5); BILIRUBIN-UNCONJUGATED 2.3 mg/dL (0.0-1.1); TOTAL PROTEIN 4.8 g/dL (6.3-8.2)
[2016-11-11] MEDS: PANTOPRAZOLE SODIUM 40 MG in NS 100 ML IV SCH (08:06)
--- NOTE | 2016-11-11 09:40 | PDINTPN ---
Head Chef Progress Note Assessment/Plan: Assessment/Plan: * Metastatic pancreatic cancer * GI bleed-negative on endoscopy. Angiography was negative as well. H&H is remain stable. -? repeat endoscopy today * Duodenal obstruction with stomach distention * Anemia-H&H stable * Hypotension resolved Subjective: Resting comfortably Objective: Vital Signs Temp Pulse Resp BP Pulse Ox 36.4 C 92 11 L 104/70 92 11/11/16 08:00 11/11/16 09:01 11/11/16 09:01 11/11/16 09:01 11/11/16 09:01 Laboratory Results 11/11/16 03:45 11/10/16 06:30 11/10/16 11/11/16 11/12/16 05:59 05:59 05:59 Intake Total 3994 1792.2 Output Total 1000 1300 Balance 2994 492.2 PT 16.7 SEC (12.0-15.0) H 11/11/16 03:45 INR 1.35 (0.83-1.16) H 11/11/16 03:45 Physical Exam - Physical Exam General Appearance: alert, no apparent distress EENT: PERRL/EOMI, normal ENT inspection Neck: non-tender, full range of motion, supple, normal inspection Respiratory: chest non-tender, lungs clear, normal breath sounds Cardiac/Chest: normal peripheral pulses, regular rate, rhythm Peripheral Pulses: 2+: carotid (R), carotid (L), femoral (R), femoral (L), dorsalis-pedis (R), dorsalis-pedis (L) Abdomen: normal bowel sounds, non-tender, soft, distended Male Genitalia: deferred Rectal: deferred Back: Normal inspection Skin: normal color, warm/dry ICD10 Worksheet Patient Problems: Problems Problem Status Onset GI bleed Acute Gastric distention Acute Hypotension Acute Sleep apnea, obstructive Acute Stage IV adenocarcinoma of pancreas Acute Anemia Acute Fall Acute Hypoxemia Acute
--- NOTE | 2016-11-11 10:13 | SOAPPROG ---
SOAP Progress Note Assessment/Plan: Assessment: 1.) Stage IV Pancreatic Adenocarcinoma- Diagnosis in September,. Initial staging T4N1M1 disease, primary in the pancreatic body. Initial Tx with the FOLFIRINOX regimen (5FU +Irinotecan + Oxaliplatin) which held disease stable, until disease progression documented in the past several months. Now on Second Line Tx with Abraxane/Gemcitabine, on 3rd cycle. Now receiving Tx with Dr. Diaz, at our [facility] facility. Last Tx with Day 8 Gemcitabine was administered on 11/08/16. His Gemcitabine was dose reduced due to moderate Thrombocytopenia (PLT 67K). CT scan on the ED admission noted, and was compared to prior scan of . He had a more recent scan in September, at a separate facility. His CT shows a pancreatic head mass invading Duodenum and encasing Celiac axis and SMA. He was scheduled for a repeat PET/CT scan later this month. 2.) GIBleed- acute onset- EGD noted and without clearly seen site of blood loss. Followup studies (tagged RBC scan) being considered. Transfusion support noted. Agree with management. Will need to anticipate continue depression and consumption of Platelets from bleeding and from recent chemotherapy. 3.) Thrombocytopenia- related to ongoing chemotherapy and due to consumption from UGI bleed. Will order 3 PM CBC to recheck H/H and PLT count later today. Potential exists for further and potentially significant Thrombocytopenia over the next several days. Plan: 1.) Will follow during this hospitalization. 2.) Will forward inhospital reports to [facility] chart for Dr. Diaz's review. I have chart messaged Dr. Coyne, to inform him of this hospitalization. Dr. Diaz in our [facility] office acknowledges information about this admission and development of acute UGIB. 11/11/16 10:10 Subjective: Doing better, without further emesis/hemetemesis overnight. Objective: VSS , afebrile, as noted here. Skin less pale, anicteric, NGT in place. Pt attended to by RN service at time of physician evaluation. NGT output reported as very small amt of blood tinged contents. Labs as noted here. H/H 9.7/28.7 Vital Signs Temp Pulse Resp BP Pulse Ox 36.4 C 92 11 L 104/70 92 11/11/16 08:00 11/11/16 09:01 11/11/16 09:01 11/11/16 09:01 11/11/16 09:01 Laboratory Results 11/11/16 03:45 11/10/16 06:30 11/10/16 11/11/16 11/12/16 05:59 05:59 05:59 Intake Total 3994 1792.2 Output Total 1000 1300 Balance 2994 492.2 PT 16.7 SEC (12.0-15.0) H 11/11/16 03:45 INR 1.35 (0.83-1.16) H 11/11/16 03:45 ICD10 Worksheet Patient Problems: Problems Problem Status Onset GI bleed Acute Gastric distention Acute Hypotension Acute Sleep apnea, obstructive Acute Stage IV adenocarcinoma of pancreas Acute Anemia Acute Fall Acute Hypoxemia Acute
[2016-11-11] MEDS ORDERED: MIDAZOLAM 2 MG/2 ML VIAL ONE (10:19)
[2016-11-11] MEDS ORDERED: PROPOFOL 200 MG/20 ML VIAL ONE (10:19)
--- NOTE | 2016-11-11 10:32 | PDANEPAE ---
ANE History of Present Illness h/o pancreatic adenoca with upper GI bleed, s/p 6 units PRBC, now for repeat EGD ANE Past Medical History - Cardiovascular History Hx Hypertension: No Hx Arrhythmias: No Hx Chest Pain: No Hx Coronary Artery / Peripheral Vascular Disease: No Hx CHF / Valvular Disease: No Hx Palpitations: No - Pulmonary History Hx Oxygen in Use at Home: No Hx Sleep Apnea: Yes Sleep Apnea Screening Result - Last Documented: Positive - Endocrine History Hx Diabetes: No - Cancer History Hx Cancer: Yes Cancer History Comment: pancreatic adenoca - Chronic Pain History Chronic Pain: Yes ANE Review of Systems - Exercise capacity METS (RN): 4 METS ANE Patient History - Allergies Allergies/Adverse Reactions: No Known Allergies Allergy (Unverified 04/09/16 03:44) - Home Medications Home Medications: LORazepam [Ativan (*)] 1 mg PO Q6HRS PRN 04/09/16 [Last Taken 11/09/16] Lipase/Protease/Amylase [Ricardo Mooney 16,000 Units Caps] 1 - 2 each PO TIDMEAL [Last Taken 11/09/16] Lipase/Protease/Amylase [Ricardo Mooney 16,000 Units Caps] 1 each PO TID PRN [Last Taken 11/09/16] Losartan Potassium [Cozaar] 100 mg PO BID 04/09/16 [Last Taken 11/09/16] Multivitamins [Multivitamin (*)] 1 each PO DAILY 04/09/16 [Last Taken 11/09/16] Cyclobenzaprine [Flexeril 10 MG (*)] 10 mg PO TID PRN 11/10/16 [Last Taken Unknown] Ferrous Sulfate [Ferrous Sulf 325 MG (*)] 325 mg PO DAILY 11/10/16 [Last Taken 11/09/16] Hydrocodone/Acetaminophen [[place] 5/325 (*)] 1 each PO Q4HRS 11/10/16 [Last Taken 11/09/16] Naproxen Sodium [Aleve 220 MG (*)] 440 mg PO DAILY 11/10/16 [Last Taken 11/09/16 ] Prochlorperazine Maleate [Compazine 10mg (*)] 10 mg PO Q6HRS PRN 11/10/16 [Last Taken 11/09/16] Sennosides/Docusate Sodium [Senokot-S] 1 - 2 tab PO DAILY PRN 11/10/16 [Last Taken Unknown] Simethicone [Gas-X] 250 mg PO TID 11/10/16 [Last Taken 11/09/16] ZOLPIDEM TARTRATE [Ambien CR 12.5 mg] 1.5 tab PO HS 11/10/16 [Last Taken ] - NPO status NPO Since - Liquids (Date): 11/10/16 NPO Since - Liquids (Time): 00:00 NPO Since - Solids (Date): 11/10/16 NPO Since - Solids (Time): 00:00 - Smoking Hx Smoking Status: Never smoked - Alcohol Use Alcohol Use: None ANE Labs/Vital Signs - Labs Result Diagrams: 11/11/16 03:45 11/10/16 06:30 - Vital Signs Blood Pressure: 104/70 Heart Rate: 92 Respiratory Rate: 11 O2 Sat (%): 92 Height: 175.26 cm Weight: 77.6 kg ANE Physical Exam - Airway Neck exam: FROM Mallampati Score: Class 1 Mouth exam: normal dental/mouth exam - Pulmonary Pulmonary: no respiratory distress - Cardiovascular Cardiovascular: regular rate and rhythym - ASA Status ASA Status: IV ANE Anesthesia Plan Anesthesia Plan: GA with mask
--- NOTE | 2016-11-11 10:36 | HOSPPROG ---
Hospitalist Progress Note Assessment/Plan: 56 yo M w pancreatic CA here w UGIB UGIB: severe s/p 6 units egd w blood but no source so no therapy ON PPI angiogram negative for bleed- has tumor encasing celiac and SMA bleeding appears to have decreased/stopped overnight repeat EGD now elevated LFT's: concerning for possible hemobilia may need mrcp pancreatic CA: getting weekly chemotherapy will have oncology see proph: no pharm VTE proph given bleeding code: full risk: high Subjective: case d/w ignacia nair, jose Objective: Vital Signs Temp Pulse Resp BP Pulse Ox 36.4 C 92 11 L 104/70 92 11/11/16 08:00 11/11/16 10:32 11/11/16 10:32 11/11/16 10:32 11/11/16 10:32 Microbiology 11/10/16 02:30 Urine Culture - Final Unspecified Laboratory Results 11/11/16 03:45 11/10/16 06:30 11/10/16 11/11/16 11/12/16 05:59 05:59 05:59 Intake Total 3994 1792.2 Output Total 1000 1300 Balance 2994 492.2 PT 16.7 SEC (12.0-15.0) H 11/11/16 03:45 INR 1.35 (0.83-1.16) H 11/11/16 03:45 - Physical Exam Constitutional: no apparent distress, appears nourished Eyes: PERRL, anicteric sclera Ears, Nose, Mouth, Throat: moist mucous membranes, hearing normal Cardiovascular: regular rate and rhythym, no murmur, rub, or gallop Respiratory: no respiratory distress Gastrointestinal: normoactive bowel sounds, soft, non-tender abdomen Genitourinary: no bladder fullness, No coyle in urethra Skin: warm, normal color Musculoskeletal: full muscle strength Neurologic: AAOx3 ICD10 Worksheet Patient Problems: Problems Problem Status Onset GI bleed Acute Gastric distention Acute Hypotension Acute Sleep apnea, obstructive Acute Stage IV adenocarcinoma of pancreas Acute Anemia Acute Fall Acute Hypoxemia Acute
[2016-11-11] MEDS ORDERED: fentaNYL 100 MCG/2 ML INJ IVP PRN (10:53)
[2016-11-11] MEDS ORDERED: NALOXONE HCL 0.4 MG/ML INJ IVP PRN (10:53)
[2016-11-11] MEDS ORDERED: PROMETHAZINE HCL 25 MG/ML INJ IVP PRN (10:53)
--- NOTE | 2016-11-11 10:54 | POSTOPPROG ---
Post Op Note Date of Operation: 11/11/16 Surgeon: Tomy Coleman Assembler Product: None Anesthesiologist: Dr. Trace Kat Anesthesia: Other (Specify) (IV General) Pre-op Diagnosis: Obscure UGI bleed. Post-op Diagnosis: 1. Same Indication: Acute UGI bleed without source found, repeat EGD. Procedure: EGD Findings: Normal EGD; no soiurce of GI Bleed found. Inf/Abcess present in the surg proc area at time of surgery?: No EBL: Minimal Total fluids administered: None Complications: None Specimen(s): None.
--- NOTE | 2016-11-11 11:03 | POSTANESTH ---
Post Anesthetic Evaluation Cardiovascular Status: Normal, Stable Respiratory Status: Normal, Stable Level of Consciousness/Mental Status: Mildly Sleepy, Arousable Pain Control: Adequate, Prn Tx Ordered Nausea/Vomiting Control: Adequate, Prn Tx Ordered Complications Possibly Related to Anesthesia: None Noted
[2016-11-11] MEDS: HYDROmorphONE/DILAUDID 6 MG/30 ML PCA IV PRN (13:02)
--- NOTE | 2016-11-11 14:06 | CPEKG ---
Heart Rate: 85 RR Interval: 706 P-R Interval: 144 QRSD Interval: 84 QT Interval: 368 QTC Interval: 438 P Olin: 46 QRS Olin: 9 T Wave Olin: 33 EKG Severity - NORMAL ECG - EKG Impression: SINUS RHYTHM Electronically Signed By: Frank Neal 11-Nov-2016 20:29:17
[2016-11-11 15:40] LABS: HEMATOCRIT 26.8 % (40.0-51.0); HEMOGLOBIN 9.1 g/dL (13.7-17.5); MEAN CELL HEMOGLOBIN 30.4 pg (27.9-34.1); MEAN CELL VOLUME 89.6 fL (81.5-99.8); RED BLOOD CELL COUNT 2.99 10^6/uL (4.40-6.38); RED CELL DISTRIBUTION WIDTH 14.7 % (11.5-15.2)
--- NOTE | 2016-11-11 18:20 | GPN ---
[f rep st] PROCEDURE NOTE DATE OF PROCEDURE: 11/11/2016 PROCEDURE: Esophagogastroduodenoscopy. PREOPERATIVE DIAGNOSIS: Obscure upper GI bleed, rule out bleeding source. POSTOPERATIVE DIAGNOSES: 1. Obscure upper GI bleed, rule out bleeding source. 2. Normal esophagus, stomach and duodenum with the exception of characteristic mucosal trauma from NG tube. CLINICAL HISTORY/INDICATION: The patient is a 56-year-old gentleman with metastatic pancreatic cancer (stage IV) with liver mets who presented to [facility] with a massive acute upper GI bleed. Esophagogastroduodenoscopy performed by Dr. Yousif yesterday was unrevealing for a source of the bleed, albeit there was a fair amount of blood in the gastric lumen making visualization suboptimal. The patient proceeded to emergent angiography and no bleeding source was found. The patient has since had a cessation of his bleeding, had a nonbloody stool this morning and NG is returning clear bilious solutions. He is set up for a repeat EGD to assess for etiology of his GI bleed. PERMIT: The patient was informed of indication for procedure. Risks and benefits were outlined by me, informed consent was obtained. PREOPERATIVE MEDICATIONS: IV general anesthesia by Dr. Trace Kat. PROCEDURE FINDINGS: GIF-180 video endoscope was inserted into the oropharynx and past the proximal esophagus under direct visualization. The scope was then passed alongside of the indwelling NG tube and placed into the stomach. The NG tube was atraumatically removed. The scope was then advanced across the pyloric channel into the duodenal bulb, across the duodenal sweep into the 3rd portion of the duodenum. There was no blood staining of the upper GI track identified. The 3rd, 2nd and 1st portion of the duodenal bulb appeared normal. The papilla of Vater was identified and was small and showed wisps of bile exiting it. The scope was further withdrawn. The duodenal bulb was inspected thoroughly and no evidence of ulceration or AVM identified. The scope was withdrawn into the stomach. The gastric lumen was thoroughly investigated both in front view and retroflexed position of the instrument. There were the classic mucosal ecchymoses tracking down the greater curve of the stomach, consistent with NG suction port trauma. There were no ulcerations, AVMs, or gastric varices identified in the gastric mucosa with thorough inspection of the lumen. The scope was slowly withdrawn. The esophageal mucosa appeared normal. Scope was removed. The patient tolerated the procedure well and was sent to the recovery room in satisfactory condition. IMPRESSION: Recent acute massive gastrointestinal bleed of obscure etiology, no evidence found for a bleeding source in the esophagus, stomach or duodenum, query episode of hemobilia. RECOMMENDATIONS: 1. Clear liquid diet. 2. Protonix 40 mg p.o. b.i.d. prophylactically. 3. If patient has recurrent bleeding would repeat visceral angiography. /[id number]/MODL MTDD
[2016-11-11] MEDS: PANTOPRAZOLE SODIUM 40 MG TAB PO SCH (21:03)
[2016-11-11 21:20] LABS: HEMATOCRIT 26.4 % (40.0-51.0); HEMOGLOBIN 8.9 g/dL (13.7-17.5)
[2016-11-12 05:39] LABS: HEMATOCRIT 24.7 % (40.0-51.0); HEMOGLOBIN 8.3 g/dL (13.7-17.5)
[2016-11-12 05:48] LABS: INR 1.37 (0.83-1.16); PROTIME(PATIENT) 16.9 SEC (12.0-15.0)
[2016-11-12] MEDS: HYDROmorphONE/DILAUDID 1 MG/ML SYR IVP PRN ×2 (08:17→21:12)
[2016-11-12] MEDS: PANTOPRAZOLE SODIUM 40 MG TAB PO SCH ×2 (08:17→21:11)
--- NOTE | 2016-11-12 10:42 | PDINTPN ---
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 Angiography was negative as well. H&H is remain stable. * Duodenal obstruction with stomach distention * Anemia-H&H stable * Hypotension resolved * Disposition-okay for transfer to medical surgical floor Subjective: Resting comfortably Objective: Vital Signs Temp Pulse Resp BP Pulse Ox 36.8 C 85 12 121/68 H 90 L 11/12/16 08:00 11/12/16 10:00 11/12/16 10:00 11/12/16 08:00 11/12/16 08:00 Microbiology 11/10/16 02:30 Urine Culture - Final Unspecified Laboratory Results 11/12/16 05:30 11/10/16 06:30 11/11/16 11/12/16 11/13/16 05:59 05:59 05:59 Intake Total 1792.2 2989.0 Output Total 1300 Balance 492.2 2989.0 PT 16.9 SEC (12.0-15.0) H 11/12/16 05:30 INR 1.37 (0.83-1.16) H 11/12/16 05:30 Physical Exam - Physical Exam General Appearance: alert, no apparent distress EENT: PERRL/EOMI Neck: non-tender, full range of motion, supple, normal inspection Respiratory: chest non-tender, lungs clear, normal breath sounds Cardiac/Chest: normal peripheral pulses, regular rate, rhythm Peripheral Pulses: 2+: carotid (R), carotid (L), femoral (R), femoral (L), dorsalis-pedis (R), dorsalis-pedis (L) Abdomen: distended, No non-tender Male Genitalia: deferred Rectal: deferred Skin: normal color, warm/dry Extremities: normal range of motion, non-tender, normal inspection, normal capillary refill ICD10 Worksheet Patient Problems: Problems Problem Status Onset GI bleed Acute Gastric distention Acute Hypotension Acute Sleep apnea, obstructive Acute Stage IV adenocarcinoma of pancreas Acute Anemia Acute Fall Acute Hypoxemia Acute
[2016-11-12] MEDS: SIMETHICONE 80 MG TAB CHEW PO SCH ×3 (12:05→21:10)
--- NOTE | 2016-11-12 14:03 | SOAPPROG ---
SOAP Progress Note Assessment/Plan: Assessment: 1) Metastatic pancreatic cancer' 2) Compression of 4th portion of duodenum secondary to #1 3) GI bleed. No source identified 4) Intermittent abdominal bloating secondary to #2 Plan: No source of bleeding identified with endoscopy or arteriography. He seems to have stopped bleeding from a clinical standpoint. H/H stable. He did have a maroon stool today per nursing that I suspect was old blood. Overall treatment plan for his pancreatic cancer will be deferred to his primary Oncologist Dr. Connor at [facility]. Dr. Lr has been updated in terms of this hospital admission. He seems to be getting bloating with solid foods. This is likely due to duodenal compression from his cancer. I advised him to favor a liquid diet. His questions were answered. Case d/w nursing. 11/12/16 14:00 11/12/16 14:02 11/12/16 14:04 Subjective: Had some abdominal bloating after eating a quesidilla. Improved now. Passed a maroon stool earlier today. Objective: Vital Signs Temp Pulse Resp BP Pulse Ox 36.7 C 82 16 113/69 92 11/12/16 12:00 11/12/16 12:00 11/12/16 12:00 11/12/16 12:00 11/12/16 12:00 Microbiology 11/10/16 02:30 Urine Culture - Final Unspecified Laboratory Results 11/12/16 05:30 11/10/16 06:30 11/11/16 11/12/16 11/13/16 05:59 05:59 05:59 Intake Total 1792.2 2989.0 Output Total 1300 Balance 492.2 2989.0 PT 16.9 SEC (12.0-15.0) H 11/12/16 05:30 INR 1.37 (0.83-1.16) H 11/12/16 05:30 - Time Spent With Patient Time Spent With Patient: 25 minutes Physical Exam - Physical Exam General Appearance: alert, no apparent distress EENT: PERRL/EOMI Abdomen: soft, other (minimal distension. No tenderness) Neuro/Psych: alert, normal mood/affect ICD10 Worksheet Patient Problems: Problems Problem Status Onset GI bleed Acute Gastric distention Acute Hypotension Acute Sleep apnea, obstructive Acute Stage IV adenocarcinoma of pancreas Acute Anemia Acute Fall Acute Hypoxemia Acute
[2016-11-12] MEDS: HYDROmorphONE/DILAUDID 6 MG/30 ML PCA IV PRN (14:59)
--- NOTE | 2016-11-12 15:24 | HOSPPROG ---
Hospitalist Progress Note Assessment/Plan: 56 yo M w pancreatic CA here w UGIB UGIB: severe s/p 6 units egd w blood but no source so no therapy ON PPI angiogram negative for bleed- has tumor encasing celiac and SMA bleeding appears to have decreased/stopped overnight repeat angiogram if rebleeds elevated LFT's: concerning for possible hemobilia may need mrcp pancreatic CA: getting weekly chemotherapy -onc note reviewed and appreciated proph: no pharm VTE proph given bleeding code: full risk: high will transfer to Subjective: feels bloated. no obvious bleeding Objective: Vital Signs Temp Pulse Resp BP Pulse Ox 36.7 C 87 16 114/59 L 92 11/12/16 12:00 11/12/16 14:00 11/12/16 14:00 11/12/16 14:00 11/12/16 14:00 Microbiology 11/10/16 02:30 Urine Culture - Final Unspecified Laboratory Results 11/12/16 05:30 11/10/16 06:30 11/11/16 11/12/16 11/13/16 05:59 05:59 05:59 Intake Total 1792.2 2989.0 Output Total 1300 Balance 492.2 2989.0 PT 16.9 SEC (12.0-15.0) H 11/12/16 05:30 INR 1.37 (0.83-1.16) H 11/12/16 05:30 - Physical Exam Constitutional: no apparent distress, appears nourished, not in pain Cardiovascular: regular rate and rhythym, no murmur, rub, or gallop Respiratory: no respiratory distress, no rales or rhonchi, clear to auscultation Gastrointestinal: other (hypoactive bowel sounds), No tenderness, No guarding, No rebound Neurologic: AAOx3, sensation intact bilaterally ICD10 Worksheet Patient Problems: Problems Problem Status Onset Hypotension Acute Fall Acute Stage IV adenocarcinoma of pancreas Acute Sleep apnea, obstructive Acute Anemia Acute Hypoxemia Acute GI bleed Acute Gastric distention Acute
[2016-11-12 16:17] LABS: HEMATOCRIT 26.6 % (40.0-51.0); HEMOGLOBIN 8.9 g/dL (13.7-17.5)
--- NOTE | 2016-11-12 16:39 | SOAPPROG ---
VENKATA Progress Note Assessment/Plan: Assessment:Plan: 1) check H/H and LFT's 2) If rebleeds, consider EGD with colon scope to view distal duodenum and prox jejunum. 3) Check LFT"s, it is possible he is having hemobilia given his liver mets and LFT's increasing after bleed with negative EGD I will review the angio study with radiology. IF rebleeds may need angio as well will follow 11/12/16 16:36 Subjective: CC - GI bleed, panc cancer with liver mets feeling bloated with PO intake passed old blood this am, nothing new and no n/v Objective: Vital Signs Temp Pulse Resp BP Pulse Ox 36.7 C 92 16 131/77 H 94 11/12/16 16:33 11/12/16 16:33 11/12/16 16:33 11/12/16 16:33 11/12/16 16:33 Laboratory Results 11/12/16 16:05 11/11/16 11/12/16 11/13/16 05:59 05:59 05:59 Intake Total 1792.2 2989.0 Output Total 1300 Balance 492.2 2989.0 PT 16.9 SEC (12.0-15.0) H 11/12/16 05:30 INR 1.37 (0.83-1.16) H 11/12/16 05:30 A+Ox3 CTA S1S2, RRR +BS, soft tender no r/g Laboratory Tests 11/09/16 11/10/16 11/11/16 23:24 06:30 03:45 Hgb Hct Total Bilirubin 1.3 1.6 H 2.8 H D AST 48 36 107 H ALT 59 48 96 H Alkaline Phosphatase 284 H 199 H 213 H 11/11/16 11/11/16 11/12/16 15:30 21:00 05:30 Hgb 9.1 L 8.9 L 8.3 L Hct 26.8 L 26.4 L 24.7 L Total Bilirubin AST ALT Alkaline Phosphatase 11/12/16 16:05 Hgb 8.9 L Hct 26.6 L Total Bilirubin AST ALT Alkaline Phosphatase ICD10 Worksheet Patient Problems: Problems Problem Status Onset GI bleed Acute Gastric distention Acute Hypotension Acute Sleep apnea, obstructive Acute Stage IV adenocarcinoma of pancreas Acute Anemia Acute Fall Acute Hypoxemia Acute
[2016-11-12 16:45] LABS: ALANINE AMINOTRANSFERASE 87 IU/L (21-72); ALBUMIN 2.9 g/dL (3.5-5.0); ALKALINE PHOSPHATASE 212 IU/L (38-126); ANION GAP 8 mEq/L (8-16); ASPARTATE AMINOTRANSFERASE 82 IU/L (17-59); BILIRUBIN,TOTAL 1.4 mg/dL (0.1-1.4); CALCIUM 8.4 mg/dL (8.5-10.4); CARBON DIOXIDE 23 mEq/l (22-31); CHLORIDE 103 mEq/L (97-110); CREATININE 0.5 mg/dL (0.7-1.3); GLOMERULAR FILTRATION RATE > 60; GLUCOSE 142 mg/dL (70-100); POTASSIUM 3.7 mEq/L (3.5-5.2); SODIUM 134 mEq/L (134-144); TOTAL PROTEIN 5.1 g/dL (6.3-8.2)
[2016-11-13] MEDS: HYDROmorphONE/DILAUDID 1 MG/ML SYR IVP PRN ×2 (03:55→09:04)
[2016-11-13] MEDS: PANTOPRAZOLE SODIUM 40 MG TAB PO SCH ×2 (09:05→21:32)
[2016-11-13] MEDS: SIMETHICONE 80 MG TAB CHEW PO SCH ×4 (09:05→21:32)
[2016-11-13] MEDS ORDERED: BISACODYL 10 MG SUPP PR PRN (09:51)
[2016-11-13] MEDS ORDERED: LACTULOSE 20 GM/30 ML UDCUP PO PRN (09:51)
[2016-11-13] MEDS ORDERED: POLYETHYLENE GLYCOL 3350 17 GM PKT PO PRN (09:51)
--- NOTE | 2016-11-13 10:45 | SOAPPROG ---
SOAP Progress Note Assessment/Plan: Assessment: 1) Metastatic pancreatic cancer' 2) Compression of 4th portion of duodenum secondary to #1 3) GI bleed. No source identified 4) Intermittent abdominal bloating secondary to #2 Plan: No source of bleeding identified with endoscopy or arteriography. His CBC from today is pending. He seems to have stopped bleeding from a clinical standpoint. Overall treatment plan for his pancreatic cancer will be deferred to his primary Oncologist Dr. Connor at [facility]. Dr. Lr has been updated in terms of this hospital admission. His most recent CT scan done here shows progressive disease when compared to his March study. He will likely need to switch therapy. He prefers to discuss this with Dr. Lr before making any decisions. He is experiencing bloating with solid foods. This is likely due to duodenal compression from his cancer. This can be seen on his recent CT. I advised him to favor a liquid diet. If this symptom persists, then he would potentially benefit from a duodenal stent. I will discuss the feasibility of this with GI. He would like to attempt soft mechanical diet for now. His questions were answered. Subjective: Still with bloating and nausea after meals. He has not yet eaten today, so currently denies this symptoms. No further maroon stools or BRBPR. Objective: Vital Signs Temp Pulse Resp BP Pulse Ox 36.6 C 90 14 137/81 H 90 L 11/13/16 09:58 11/13/16 09:58 11/13/16 09:58 11/13/16 09:58 11/13/16 09:58 Laboratory Results 11/12/16 16:05 11/12/16 16:05 11/12/16 11/13/16 11/14/16 05:59 05:59 05:59 Intake Total 2989.0 1400 350 Balance 2989.0 1400 350 PT 16.9 SEC (12.0-15.0) H 11/12/16 05:30 INR 1.37 (0.83-1.16) H 11/12/16 05:30 - Time Spent With Patient Time Spent With Patient: 25 minutes Physical Exam - Physical Exam General Appearance: alert, no apparent distress EENT: PERRL/EOMI Abdomen: non-tender, soft Neuro/Psych: alert, normal mood/affect ICD10 Worksheet Patient Problems: Problems Problem Status Onset GI bleed Acute Gastric distention Acute Hypotension Acute Sleep apnea, obstructive Acute Stage IV adenocarcinoma of pancreas Acute Anemia Acute Fall Acute Hypoxemia Acute
[2016-11-13] MEDS: HYDROCODONE/APAP 5/325 TAB PO SCH ×4 (10:53→21:33)
[2016-11-13] MEDS: HYDROmorphONE/DILAUDID 6 MG/30 ML PCA IV PRN (11:51)
[2016-11-13] MEDS: MAGNESIUM HYDROXIDE 30 ML UDCUP PO PRN (12:53)
--- NOTE | 2016-11-13 14:30 | SOAPPROG ---
VENKATA Progress Note Assessment/Plan: Assessment:Plan: 1) check H/H and LFT's 2) If rebleeds, consider EGD with colon scope to view distal duodenum and prox jejunum. 3) Check LFT"s, it is possible he is having hemobilia given his liver mets and LFT's increasing after bleed with negative EGD I will review the angio study with radiology. IF rebleeds may need angio as well will follow 11/12/16 16:36 11/13/16 14:27 as above 1) GI bleed - stable, no further bleeding, I suspect either hemobilia or bleeding from tumor in 4th portion of duodenum. IF rebleeds, EGD with longer scope. 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 Preferred therapy would be gastrojejunostomy, stenting is an alternative. Trial soft diet. IF tolerates maybe home? 3) LFT's - I do suspect hemobilia as cause of LFT's - blood/clot in bile duct that is clearing and we are seeing the Bili and LFT's decrease. Subjective: CC- UGI bleed, panc cancer, functional GOO pt eager to go home, will try liquids and low residue diet discussed surgery vs stenting for Gastric Outlet Obstruction, Objective: Vital Signs Temp Pulse Resp BP Pulse Ox 36.6 C 85 15 123/77 H 91 L 11/13/16 14:00 11/13/16 14:00 11/13/16 14:00 11/13/16 14:00 11/13/16 14:00 Laboratory Results 11/12/16 16:05 11/12/16 16:05 11/12/16 11/13/16 11/14/16 05:59 05:59 05:59 Intake Total 2989.0 1400 350 Balance 2989.0 1400 350 PT 16.9 SEC (12.0-15.0) H 11/12/16 05:30 INR 1.37 (0.83-1.16) H 11/12/16 05:30 A+Ox3 CTA S1S2, RRR +BS, soft Laboratory Tests 11/10/16 11/11/16 11/12/16 06:30 03:45 16:05 Total Bilirubin 1.6 H 2.8 H D 1.4 AST 36 107 H 82 H ALT 48 96 H 87 H Alkaline Phosphatase 199 H 213 H 212 H ICD10 Worksheet Patient Problems: Problems Problem Status Onset GI bleed Acute Gastric distention Acute Hypotension Acute Sleep apnea, obstructive Acute Stage IV adenocarcinoma of pancreas Acute Anemia Acute Fall Acute Hypoxemia Acute
--- NOTE | 2016-11-13 14:30 | HOSPPROG ---
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 no bm no flatus. poor appetite. no obvious bleeding Objective: Vital Signs Temp Pulse Resp BP Pulse Ox 36.6 C 85 15 123/77 H 91 L 11/13/16 14:00 11/13/16 14:00 11/13/16 14:00 11/13/16 14:00 11/13/16 14:00 Laboratory Results 11/12/16 16:05 11/12/16 16:05 11/12/16 11/13/16 11/14/16 05:59 05:59 05:59 Intake Total 2989.0 1400 350 Balance 2989.0 1400 350 PT 16.9 SEC (12.0-15.0) H 11/12/16 05:30 INR 1.37 (0.83-1.16) H 11/12/16 05:30 kub reviewed - Physical Exam Constitutional: no apparent distress, appears nourished, not in pain Cardiovascular: regular rate and rhythym, no murmur, rub, or gallop Respiratory: no respiratory distress, no rales or rhonchi, clear to auscultation Gastrointestinal: soft, non-tender abdomen, no palpable masses, distension, No normoactive bowel sounds (hypoactive bowel sounds) Neurologic: AAOx3, sensation intact bilaterally ICD10 Worksheet Patient Problems: Problems Problem Status Onset Hypotension Acute Fall Acute Stage IV adenocarcinoma of pancreas Acute Sleep apnea, obstructive Acute Anemia Acute Hypoxemia Acute GI bleed Acute Gastric distention Acute
[2016-11-13] MEDS: SENNOSIDES/DOCUSATE SODIUM TAB PO SCH (21:33)
[2016-11-14] MEDS: HYDROCODONE/APAP 5/325 TAB PO SCH ×5 (02:44→17:35)
[2016-11-14 03:10] LABS: % IMMATURE GRANULYOCYTES 0.4 % (0.0-1.1); ABSOLUTE IMMATURE GRANULOCYTES 0.01 10^3/uL (0.00-0.10); ADD DIFF? NO; ADD MORPH? NO; ADD SCAN? NO; ATYPICAL LYMPHOCYTE FLAG 30 (0-99); FRAGMENT RBC FLAG 0 (0-99); HEMATOCRIT 22.9 % (40.0-51.0); HEMOGLOBIN 7.5 g/dL (13.7-17.5); LEFT SHIFT FLG 0 (0-99); LIPEMIA HEMOLYSIS FLAG 80 (0-99); MEAN CELL HEMOGLOBIN 29.6 pg (27.9-34.1); MEAN CELL HEMOGLOBIN CONCENTR. 32.8 g/dL (32.4-36.7); MEAN CELL VOLUME 90.5 fL (81.5-99.8); MEAN PLATELET VOLUME 10.7 fL (8.7-11.7); PLATELET CLUMPS FLAG 0 (0-99); RED BLOOD CELL COUNT 2.53 10^6/uL (4.40-6.38); RED CELL DISTRIBUTION WIDTH 14.4 % (11.5-15.2)
[2016-11-14 03:16] LABS: ALANINE AMINOTRANSFERASE 68 IU/L (21-72); ALBUMIN 2.5 g/dL (3.5-5.0); ALKALINE PHOSPHATASE 238 IU/L (38-126); ANION GAP 7 mEq/L (8-16); ASPARTATE AMINOTRANSFERASE 49 IU/L (17-59); BILIRUBIN,TOTAL 0.9 mg/dL (0.1-1.4); CALCIUM 8.1 mg/dL (8.5-10.4); CARBON DIOXIDE 24 mEq/l (22-31); CHLORIDE 105 mEq/L (97-110); CREATININE 0.5 mg/dL (0.7-1.3); GLOMERULAR FILTRATION RATE > 60; GLUCOSE 95 mg/dL (70-100); POTASSIUM 3.3 mEq/L (3.5-5.2); SODIUM 136 mEq/L (134-144); TOTAL PROTEIN 4.6 g/dL (6.3-8.2)
[2016-11-14 03:28] LABS: PLATELET COUNT 47 10^3/uL (150-400)
[2016-11-14 04:00] LABS: PLATELET ESTIMATE DECREASED (ADEQ)
[2016-11-14] MEDS: PANTOPRAZOLE SODIUM 40 MG TAB PO SCH (09:49)
[2016-11-14] MEDS: SENNOSIDES/DOCUSATE SODIUM TAB PO SCH (09:49)
[2016-11-14] MEDS: SIMETHICONE 80 MG TAB CHEW PO SCH ×3 (09:49→17:35)
[2016-11-14] MEDS: MAGNESIUM HYDROXIDE 30 ML UDCUP PO PRN (09:51)
--- NOTE | 2016-11-14 11:40 | SOAPPROG ---
SOAP Progress Note Assessment/Plan: E&M for pancreatic cancer * Metastatic pancreatic cancer: Overall treatment plan is deferred to his primary Oncologist Dr. Connor at [facility]. Dr. Lr has been updated regarding this hospital admission. His most recent CT scan done here shows progressive disease when compared to March study. He will likely need to switch therapy. He prefers to discuss this with Dr. Lr before making any decisions. * Compression of 4th portion of duodenum secondary to cancer with abd distention : having bloating with eating solids but passings stools. Denies passing gas. If persists or worsens, may need to consider by-pass vs. stent. * GI bleed. No source identified with endoscopy or arteriography although most likely upper; LFTs back to normal except alk phos. Denies bleeding but h/h dropped from yesterday. Will need to continue following. GI recommends further investigation if signs of continued bleeding. Subjective: Ate breakfast. Still bloated, which is what is really bothering him. Denies bleeding. Objective: Vital Signs Temp Pulse Resp BP Pulse Ox 36.6 C 85 10 L 129/70 H 91 L 11/14/16 08:40 11/14/16 08:40 11/14/16 08:40 11/14/16 08:40 11/14/16 08:40 Laboratory Results 11/14/16 02:55 11/14/16 02:55 11/13/16 11/14/16 11/15/16 05:59 05:59 05:59 Intake Total 1400 2150 Balance 1400 2150 PT 16.9 SEC (12.0-15.0) H 11/12/16 05:30 INR 1.37 (0.83-1.16) H 11/12/16 05:30 Laboratory Tests 11/10/16 11/11/16 11/14/16 06:30 15:30 02:55 Hgb 6.1 L 9.1 L 7.5 L Physical Exam - Physical Exam General Appearance: no apparent distress Cardiac/Chest: regular rate, rhythm Abdomen: distended, No normal bowel sounds (hypoactive), No non-tender ICD10 Worksheet Patient Problems: Problems Problem Status Onset GI bleed Acute Gastric distention Acute Hypotension Acute Sleep apnea, obstructive Acute Stage IV adenocarcinoma of pancreas Acute Anemia Acute Fall Acute Hypoxemia Acute
[2016-11-14] MEDS: HYDROmorphONE/DILAUDID 1 MG/ML SYR IVP PRN ×2 (12:00→16:34)
--- NOTE | 2016-11-14 12:12 | SOAPPROG ---
SOAP Progress Note Assessment/Plan: Assessment/Plan: 1. Metastatic Pancreatic CA - mgt per oncologist - appears to be progressing despite current chemo 2. External Compression of duodenum by #1 - resultant abd pain and bloating - no evidence of intraluminal involvement on EGD x2 or clear focal stenosis of the duodenum - could consider surgical therapy vs diet advance - stent therapy likely to be ineffective, or perhaps complicated by stent migration, in the absence of focus intraluminal stenosis from tumor in growth - suspect some degree of compression from extra-luminal spread of cancer and perhaps some function obstruction as well - could consider UGI to more carefully define the duodenal circumstance, but this may be unhelpful in the face of limited therapeutic options - low residue, gastroparesis-type, diet recommended 3. GI Bleed - likely UGI source, still obscure - H/H trending down, but no obvious hematemesis of melena - 2 recent EGDs without clear source of bleeding - suspect hemobilia - will need to wait for a more significant bleeding presentation to resolve this differential - continue to monitor - will sign off, call with questions 11/14/16 12:05 Subjective: CC: abdominal pain, f/u pancreatic CA, bleeding, and GOO S: no fever no chills no melena no hematemesis still with pain no cough Objective: Vital Signs Temp Pulse Resp BP Pulse Ox 36.6 C 85 10 L 129/70 H 91 L 11/14/16 08:40 11/14/16 08:40 11/14/16 08:40 11/14/16 08:40 11/14/16 08:40 Laboratory Results 11/14/16 02:55 11/14/16 02:55 11/13/16 11/14/16 11/15/16 05:59 05:59 05:59 Intake Total 1400 2150 Balance 1400 2150 PT 16.9 SEC (12.0-15.0) H 11/12/16 05:30 INR 1.37 (0.83-1.16) H 11/12/16 05:30 Physical Exam - Physical Exam General Appearance: alert EENT: PERRL/EOMI, No scleral icterus (R), No scleral icterus (L) Respiratory: lungs clear, normal breath sounds Cardiac/Chest: normal peripheral pulses, regular rate, rhythm, No edema Abdomen: normal bowel sounds, soft, No non-tender, No organomegaly Skin: normal color, warm/dry, No jaundice Extremities: normal range of motion Neuro/Psych: no motor/sensory deficits ICD10 Worksheet Patient Problems: Problems Problem Status Onset GI bleed Acute Gastric distention Acute Hypotension Acute Sleep apnea, obstructive Acute Stage IV adenocarcinoma of pancreas Acute Anemia Acute Fall Acute Hypoxemia Acute
--- NOTE | 2016-11-14 13:48 | GDS ---
[f rep st] DISCHARGE SUMMARY DISCHARGE DIAGNOSES: 1. Pancreatic cancer. 2. Upper gastrointestinal bleed, massive, status post 6 units of packed red blood cells with no obv ious source of bleeding but concerning for hemobilia. 3. Abdominal pain and bloating due to duodenal obstruction from tumor. 4. Acute blood loss anemia. CONSULTANTS: 1. [facility]. 2. [facility]. 3. Interventional Radiology Dr. Mihai Almazan. HOSPITAL COURSE: By problem: 1. Metastatic pancreatic cancer with upper GI bleeding: The patient was admitted to the hospital o n 11/10/2016 where he underwent EGD on 11/10/2016 where he was found to have a small amount of blood in the esophagus. It was thought to be related to reflux. There were no varices. The stomach and a large amount of blood and clot in the fundus of the stomach but no source of bleeding was found. The duodenal was exam to the 4th portion using a pediatric colonoscope where he was not noted to connell ve duodenal obstruction. The patient continued to drop his H and H and underwent a visceral angiogr aphy study on 11/10/2016, which also did not reveal a source of the bleeding. Throughout the patient's hospital stay, he received a total of 7 units of packed red blood cells. S ix of those units were given on November 10. He is receiving a unit of packed red blood cells on the d ay of discharge since his hemoglobin is slowly drifting down. On the day of discharge, the patient states that he is feeling somewhat better would like to leave [facility]. He has been seen by GI who do not think that a duodenal stent is an option. They are recommending that he maintain a low residual gastroparesis diet, that consists mostly of full liquid s. If he is unable to eat, surgically placed feeding tube may be appropriate. PHYSICAL EXAM: VITAL SIGNS: On day of discharge, blood pressure 129/70, pulse of 85, respiratory r ate 10, O2 saturation 91% on room air. Temperature afebrile. GENERAL: No acute distress. HEART: S1, S2. LUNGS: Clear. ABDOMEN: Distended without guarding or rebound tenderness. PERTINENT LABS AND STUDIES: EGD done on 11/10/2016, refer to report. Visceral angiography done on 11/10/2016, refer to report. DISCHARGE MEDICATIONS: Please refer to discharge medication reconciliation [facility] for details. DISCHARGE INSTRUCTIONS: The patient will be discharged from the hospital where he should follow up with his primary oncologist Dr. Lr later this week. He should seek emergency medical care if he d evelops any new bleeding. Copy requested to: Dr. Lr [facility] Primary Care Provider /[id number]/MODL
[2016-11-14 14:37] VITALS: BP 143/86; PULSE 80; RESP 12; TEMP 97.4; O2SAT 92
== END 2016-11-14 17:50 | disposition home or self-care (01) | DRG 436 ==
LOC: OBSVTOIN 11-10 01:33 → F2N 11-10 02:04 → F1N 11-12 11:55
PROVIDERS: ADMIT Student in an Organized Health Care Education/Training Program; ATTEND Family Medicine
PROC: 0DJ08ZZ Inspection of Upper Intestinal Tract, Via Natural or Artificial Opening Endoscopic (ICD-10-PCS; 2016-11-10)
PROC: 04H Lower Arteries, Insertion (ICD-10-PCS; 2016-11-10)
PROC: 04H Lower Arteries, Insertion (ICD-10-PCS; 2016-11-10)
PROC: 30233N1 Transfusion of Nonautologous Red Blood Cells into Peripheral Vein, Percutaneous Approach (ICD-10-PCS; principal; 2016-11-10 11:45)
PROC: 0DJ08ZZ Inspection of Upper Intestinal Tract, Via Natural or Artificial Opening Endoscopic (ICD-10-PCS; 2016-11-11)
DX: C25.9 Malignant neoplasm of pancreas, unspecified (principal); K92.2 Gastrointestinal hemorrhage, unspecified; D62 Acute posthemorrhagic anemia; C78.7 Secondary malignant neoplasm of liver and intrahepatic bile duct; K31.5 Obstruction of duodenum; I95.9 Hypotension, unspecified; D69.59 Other secondary thrombocytopenia; R94.5 Abnormal results of liver function studies; I87.8 Other specified disorders of veins; R14.0 Abdominal distension (gaseous); G47.33 Obstructive sleep apnea (adult) (pediatric); Z95.828 Presence of other vascular implants and grafts; Z92.21 Personal history of antineoplastic chemotherapy
CPT/HCPCS: 96365; C1760; C1769; C1894; J0692; J1170; J1610; J1642; J1644; J2250; J2405; J2704; J3010; P9016; Q9967

== ENCOUNTER 2016-11-18 13:32 | Emergency (ER) | payer BC ==
[2016-11-18] MEDS ORDERED: NS 1,000 ML IV ONE (14:10)
--- NOTE | 2016-11-18 14:17 | EDPHY ---
H & P Stated Complaint: sent by Dr Lr ct scan-- abd bloating, diarrhea, hx pancreatic cancer Source: Patient Exam Limitations: No limitations - Personal History Current Tetanus/Diphtheria Vaccine: Unsure Current Tetanus Diphtheria and Acellular Pertussis (TDAP): Unsure - Medical/Surgical History Hx Asthma: No Hx Chronic Respiratory Disease: No Hx Diabetes: No Hx Cardiac Disease: No Hx Renal Disease: No Hx Cirrhosis: No Hx Alcoholism: No Hx HIV/AIDS: No Hx Splenectomy or Spleen Trauma: No Other PMH: PMHx: Pancreatic Cx. PSHx: Port Placement - Social History Smoking Status: Never smoked Time Seen by Provider: 11/18/16 14:04 HPI/ROS: CHIEF COMPLAINT: Increasing abdominal pain, decreased urine output, fast GI transit HISTORY OF PRESENT ILLNESS: Patient has a history of a progressive pancreatic cancer and presents to the ED with increasing abdominal pain, decreased urine output and reported fast transit through his GI tract. The patient was hospitalized approximately week ago for evaluation of a GI bleed. No obvious source of bleeding was found that point time. The patient was discharged home. In light of his increasing abdominal pain and decreased urine output he was referred to the emergency department by his primary oncologist Dr. Coello for blood testing and a CT scan. REVIEW OF SYSTEMS: A comprehensive 10 point review of systems is otherwise negative aside from elements mentioned in the history of present illness. (Salas Osborn) - Physical Exam Exam: General Appearance: Thin male, no acute distress Eyes: Pupils equal and round no pallor or injection ENT, Mouth: Mucous membranes moist Respiratory: There are no retractions, lungs are clear to auscultation Cardiovascular: Regular rate and rhythm Gastrointestinal: Protuberant, minimal diffuse tenderness, no peritoneal signs Neurological: A&O, normal motor function, normal sensory exam, normal cranial nerves Skin: Warm and dry, no rashes Musculoskeletal: Neck is supple nontender Extremities: symmetrical, full range of motion (Salas Osborn) Constitutional: Initial Vital Signs Temperature (C) 36.9 C 11/18/16 13:36 Heart Rate 93 11/18/16 13:36 Respiratory Rate 16 11/18/16 13:36 Blood Pressure 131/88 H 11/18/16 13:36 O2 Sat (%) 93 11/18/16 13:36 O2 Delivery Mode Room Air Allergies/Adverse Reactions: No Known Allergies Allergy (Unverified 12/31/16 03:44) Home Medications: Medication Instructions Recorded LORazepam [Ativan (*)] 1 mg PO Q6HRS PRN 04/09/16 Lipase/Protease/Amylase [Pertzy[place] 1 - 2 each PO TIDMEAL 04/09/16 16,000 Units Caps] Lipase/Protease/Amylase [P[place]zy[place] 1 each PO TID PRN 04/09/16 16,000 Units Caps] Multivitamins [Multivitamin (*)] 1 each PO DAILY 04/09/16 Polyethylene Glycol 3350 [Miralax 17 gm PO DAILY PRN #0 pkt 04/10/16 17 gm (*)] Cyclobenzaprine [Flexeril 10 MG 10 mg PO TID PRN 11/10/16 (*)] Ferrous Sulfate [Ferrous Sulf 325 325 mg PO DAILY 11/10/16 MG (*)] Prochlorperazine Maleate 10 mg PO Q6HRS PRN 11/10/16 [Compazine 10mg (*)] Sennosides/Docusate Sodium 1 - 2 tab PO DAILY PRN 11/10/16 [Senokot-S] Simethicone [GAS-X] 250 mg PO TID 11/10/16 ZOLPIDEM TARTRATE [Ambien CR 12.5 1.5 tab PO HS 11/10/16 mg] Hydrocodone/Acetaminophen [[place] 1 each PO Q4HRS #30 tablet 11/14/16 5/325 (*)] Pantoprazole Sodium [Protonix 40mg 40 mg PO BID #60 tab 11/14/16 (*)] Medical Decision Making - Diagnostics Imaging Results: Imaging Impressions Abdomen CT 11/18/16 14:48 Impression: 1. Known pancreatic cancer. 2. Interval development of moderate to large amount of abdominal and pelvic ascites, contributing to bloating. 3. No bowel obstruction. Findings discussed with Dr. Salas Osborn at 1600 hours, 11/18/2016. Final report concurs with initial preliminary interpretation. Paracentesis Ultrasound 11/18/16 16:51 Impression: Successful ultrasound-guided paracentesis. ED Course/Re-evaluation: The patient had an IV established. I reviewed his past medical records including his hospitalization, prior CT scan, GI consultation and results of his arterial angiography. The patient presents to the ED with increasing abdominal pain, distention and the decreased urine output. The patient received 1 L of normal saline. The patient's primary oncologist has requested the patient have a CT scan. The patient was noted to have a normal creatinine in the ED. A CT scan was ordered at 3:00 p.m.. The patient will be turned over to Dr. Cornejo at 2:50 p.m. (Salas Osborn) 1540: This patient was signed over to me at 250PM, patient pending CT scan of the abdomen pelvis. After obtaining the results of this I will talk to Dr. Morillo. Reason for CT scan is abdominal bloating, fast transit, and decreased p.o. 1648: I spoke with Dr. Morillo. We went over the case blood work and CT scan. Dr. Morillo is requesting that we do a paracentesis. I will touch base with IR to see if we can set this up. Updated patient agrees for IR procedure in paracentesis. Paracentesis will be done for diagnostic as well as therapeutic intervention. 1908: Patient had ultrasound-guided paracentesis. 2500 cc were removed. Patient is now back from paracentesis. In ER room 11 hemodynamically stable no acute distress. (Branden Cornejo) Differential Diagnosis: Differential diagnosis considered includes perforation, obstruction, worsening intra-abdominal related today (Salas Osborn) - Data Points Laboratory Results: Laboratory Results 11/18/16 14:30 11/18/16 14:30 11/18/16 11/18/16 11/18/16 Unknown Unknown 14:31 WBC RBC Hgb POC Hgb 9.9 gm/dL L gm/dL (13.7-17.5) Hct POC Hct 29 % L % (40-51) MCV MCH MCHC RDW Plt Count MPV Neut % (Auto) Lymph % (Auto) [place] % (Auto) Eos % (Auto) Baso % (Auto) Nucleat RBC Rel Count Absolute Neuts (auto) Absolute Lymphs (auto) Absolute Monos (auto) Absolute Eos (auto) Absolute Basos (auto) Absolute Nucleated RBC Immature Gran % Immature Gran # PT INR APTT POC Sodium 138 mEq/L mEq/L (134-144) Sodium POC Potassium 3.5 mEq/L mEq/L (3.3-5.0) Potassium POC Chloride 102 mEq/L mEq/L (97-110) Chloride Carbon Dioxide Anion Gap POC BUN 4 mg/dL L mg/dL (7-23) BUN Creatinine POC Creatinine 0.5 mg/dL L mg/dL (0.7-1.3) Estimated GFR Glucose POC Glucose 95 mg/dL mg/dL (70-100) Calcium Fluid Glucose Cancelled CSF Total Protein Cancelled Pericardial Glucose 86 mg/dL mg/dL (55-113) Peritoneal Source PERITONEAL Peritoneal Color PALE YELLOW (CLS/PALE YL) Peritoneal Appearance SL. HAZY H (CLEAR) Peritoneal WBC Pending Peritoneal RBC Pending Peritoneal Tot Protein < 2.0 g/dL g/dL Cytology Pending 11/18/16 11/18/16 11/18/16 14:30 14:30 14:30 WBC 3.73 10^3/uL L 10^3/uL (3.80-9.50) RBC 3.19 10^6/uL L 10^6/uL (4.40-6.38) Hgb 9.3 g/dL L g/dL (13.7-17.5) POC Hgb Hct 28.3 % L % (40.0-51.0) POC Hct MCV 88.7 fL fL (81.5-99.8) MCH 29.2 pg pg (27.9-34.1) MCHC 32.9 g/dL g/dL (32.4-36.7) RDW 14.7 % % (11.5-15.2) Plt Count 81 10^3/uL L 10^3/uL (150-400) MPV 12.1 fL H fL (8.7-11.7) Neut % (Auto) 65.5 % % (39.3-74.2) Lymph % (Auto) 18.2 % % (15.0-45.0) [place] % (Auto) 13.4 % H % (4.5-13.0) Eos % (Auto) 2.1 % % (0.6-7.6) Baso % (Auto) 0.5 % % (0.3-1.7) Nucleat RBC Rel Count 0.0 % % (0.0-0.2) Absolute Neuts (auto) 2.44 10^3/uL 10^3/uL (1.70-6.50) Absolute Lymphs (auto) 0.68 10^3/uL L 10^3/uL (1.00-3.00) Absolute Monos (auto) 0.50 10^3/uL 10^3/uL (0.30-0.80) Absolute Eos (auto) 0.08 10^3/uL 10^3/uL (0.03-0.40) Absolute Basos (auto) 0.02 10^3/uL 10^3/uL (0.02-0.10) Absolute Nucleated RBC 0.00 10^3/uL 10^3/uL (0-0.01) Immature Gran % 0.3 % % (0.0-1.1) Immature Gran # 0.01 10^3/uL 10^3/uL (0.00-0.10) PT 16.3 SEC H SEC (12.0-15.0) INR 1.31 H (0.83-1.16) APTT 31.5 SEC SEC (23.0-38.0) POC Sodium Sodium 135 mEq/L mEq/L (134-144) POC Potassium Potassium 3.6 mEq/L mEq/L (3.5-5.2) POC Chloride Chloride 103 mEq/L mEq/L (97-110) Carbon Dioxide 24 mEq/l mEq/l (22-31) Anion Gap 8 mEq/L mEq/L (8-16) POC BUN BUN 6 mg/dL L mg/dL (7-23) Creatinine 0.5 mg/dL L mg/dL (0.7-1.3) POC Creatinine Estimated GFR > 60 Glucose 87 mg/dL mg/dL (70-100) POC Glucose Calcium 8.3 mg/dL L mg/dL (8.5-10.4) Fluid Glucose CSF Total Protein Pericardial Glucose Peritoneal Source Peritoneal Color Peritoneal Appearance Peritoneal WBC Peritoneal RBC Peritoneal Tot Protein Cytology Medications Given: Discontinued Medications Hydromorphone HCl (Dilaudid) 1 mg IVP EDNOW ONE Stop: 11/18/16 15:41 Last Admin: 11/18/16 16:03 Dose: 1 mg Sodium Chloride (Ns) 1,000 mls @ 0 mls/hr IV EDNOW ONE; Wide Open PRN Reason: Protocol Stop: 11/18/16 14:11 Last Admin: 11/18/16 14:31 Dose: 1,000 mls Ondansetron HCl (Zofran) 4 mg IVP EDNOW ONE Stop: 11/18/16 14:29 Last Admin: 11/18/16 14:33 Dose: 4 mg Point of Care Test Results: 11/18/16 14:31 POC Sodium 138 POC Potassium 3.5 POC Chloride 102 POC BUN 4 L POC Creatinine 0.5 L POC Glucose 95 Departure - Departure Disposition: Home, Routine, Self-Care Clinical Impression: Stage IV adenocarcinoma of pancreas, Abdominal bloating Ascites Qualifiers: Ascites type: other type Qualified Code(s): R18.8 - Other ascites Condition: Fair Instructions: Ascites (ED), Gas and Bloating (ED) Additional Instructions: 1. Return to the emergency room if you have any worsening symptoms questions. 2. Please follow up your paracentesis studies with Oncology on Monday. Please follow up with Dr. Coyne or Dr. Morillo on Monday. Please call their for an appointment. Referrals: NONE *PRIMARY CARE P,. [Primary Care Provider] - As per Instructions
[2016-11-18] MEDS ORDERED: ONDANSETRON 4 MG/2 ML VIAL IVP ONE (14:28)
[2016-11-18 14:42] LABS: % IMMATURE GRANULYOCYTES 0.3 % (0.0-1.1); ABSOLUTE IMMATURE GRANULOCYTES 0.01 10^3/uL (0.00-0.10); ADD DIFF? NO; ADD MORPH? NO; ADD SCAN? NO; ATYPICAL LYMPHOCYTE FLAG 50 (0-99); FRAGMENT RBC FLAG 0 (0-99); HEMATOCRIT 28.3 % (40.0-51.0); HEMOGLOBIN 9.3 g/dL (13.7-17.5); LEFT SHIFT FLG 0 (0-99); LIPEMIA HEMOLYSIS FLAG 80 (0-99); MEAN CELL HEMOGLOBIN 29.2 pg (27.9-34.1); MEAN CELL HEMOGLOBIN CONCENTR. 32.9 g/dL (32.4-36.7); MEAN CELL VOLUME 88.7 fL (81.5-99.8); MEAN PLATELET VOLUME 12.1 fL (8.7-11.7); PLATELET CLUMPS FLAG 0 (0-99); PLATELET COUNT 81 10^3/uL (150-400); RED BLOOD CELL COUNT 3.19 10^6/uL (4.40-6.38); RED CELL DISTRIBUTION WIDTH 14.7 % (11.5-15.2)
[2016-11-18 14:54] LABS: ANION GAP 8 mEq/L (8-16); CALCIUM 8.3 mg/dL (8.5-10.4); CARBON DIOXIDE 24 mEq/l (22-31); CHLORIDE 103 mEq/L (97-110); CREATININE 0.5 mg/dL (0.7-1.3); GLOMERULAR FILTRATION RATE > 60; GLUCOSE 87 mg/dL (70-100); POTASSIUM 3.6 mEq/L (3.5-5.2); SODIUM 135 mEq/L (134-144)
[2016-11-18] MEDS ORDERED: IOPAMIDOL (ISOVUE-300) 100 ML BTL ONE (15:28)
[2016-11-18] MEDS ORDERED: HYDROmorphONE/DILAUDID 1 MG/ML SYR IVP ONE (15:40)
[2016-11-18] MEDS ORDERED: LIDOCAINE 1% 300 MG/30 ML SDV ONE (17:18)
[2016-11-18 17:34] LABS: INR 1.31 (0.83-1.16); PROTIME(PATIENT) 16.3 SEC (12.0-15.0)
[2016-11-18 17:35] LABS: APTT 31.5 SEC (23.0-38.0)
[2016-11-18 19:28] VITALS: BP 164/98; PULSE 70; RESP 18; TEMP 98.1; O2SAT 97
== END 2016-11-18 19:27 | disposition home or self-care (01) ==
DX: C25.9 Malignant neoplasm of pancreas, unspecified (principal); R18.8 Other ascites; R14.0 Abdominal distension (gaseous); E86.9 Volume depletion, unspecified
CPT/HCPCS: 82947-QW; 96374; J1170; J1642; J2405; Q9967

== ENCOUNTER 2016-12-04 16:54 | Inpatient (IN) | payer BC ==
[2016-12-04] MEDS ORDERED: NS 500 ML IV ONE (17:13)
--- NOTE | 2016-12-04 17:21 | EDPHY ---
H & P Time Seen by Provider: 12/04/16 17:01 HPI/ROS: CHIEF COMPLAINT: Dizzy HISTORY OF PRESENT ILLNESS: The patient is a 56-year-old male with pancreatic cancer who presents to the emergency department with dizziness. Patient has been on chemotherapy regularly for his pancreatic cancer. He returned from [place] on Monday. While in [place] Monday he required admission to the hospital in got a transfusion as well as IV fluids. Since returning home he has been lightheaded and dizzy. It is worse when he sits up. He denies significant shortness of breath. No cough. Patient has no chest pain. He has no abdominal pain. Mild nausea with no vomiting. Patient a recent history of a GI bleed but does not report any active bleeding or change in the color of his stool. Patient states that he is mildly distended but this is less than when he required his paracentesis. REVIEW OF SYSTEMS: My complete review of systems is negative except as mentioned in the HPI. Past Medical/Surgical History: Includes pancreatic cancer, low back pain Past surgical history: Port placement Social history: The patient does not smoke. Smoking Status: Never smoked Physical Exam: Vitals noted. 126/85, elevated heart rate 118, respiratory rate 20, afebrile at 36.4 GENERAL: Thin. No acute distress.. HEENT: Eyes normal to inspection, normal pharynx, no signs of dehydration. NECK: No thyromegaly, no lymphadenopathy, supple. RESPIRATORY: Clear to auscultation bilaterally, no rales, rhonchi or wheezing. CVS: Regular rate and rhythm, no rubs, murmurs, or gallops. ABDOMEN: Soft, nontender, mild distension. No surrounding erythema from previous paracentesis site. No organomegaly. BACK: Normal to inspection, no CVA tenderness. SKIN: Normal color, no rash, warm, dry. Mildly pale. EXTREMITIES: No pedal edema, no calf tenderness, no Homans sign or cords, no joint swelling. NEURO/PSYCH: Alert and oriented x3 but slightly sluggish to answer questions. Flat affect. Normal motor sensory exam. Constitutional: Initial Vital Signs Temperature (C) 36.4 C 12/04/16 16:57 Heart Rate 118 H 12/04/16 16:57 Respiratory Rate 20 12/04/16 16:57 Blood Pressure 126/85 H 12/04/16 16:57 O2 Sat (%) 97 12/04/16 16:57 O2 Delivery Mode Room Air Allergies/Adverse Reactions: No Known Allergies Allergy (Verified 12/04/16 16:56) Home Medications: Medication Instructions Recorded LORazepam [Ativan (*)] 1 mg PO Q6HRS PRN 04/09/16 Lipase/Protease/Amylase [P[place]zy[place] 1 - 2 each PO TIDMEAL 04/09/16 Dr 16,000 Units Caps] Lipase/Protease/Amylase [[place] 1 each PO TID PRN 04/09/16 Dr 16,000 Units Caps] Multivitamins [Multivitamin (*)] 1 each PO DAILY 04/09/16 Polyethylene Glycol 3350 [Miralax 17 gm PO DAILY PRN #0 pkt 04/10/16 17 gm (*)] Cyclobenzaprine [Flexeril 10 MG 10 mg PO TID PRN 11/10/16 (*)] Ferrous Sulfate [Ferrous Sulf 325 325 mg PO DAILY 11/10/16 MG (*)] Prochlorperazine Maleate 10 mg PO Q6HRS PRN 11/10/16 [Compazine 10mg (*)] Sennosides/Docusate Sodium 1 - 2 tab PO DAILY PRN 11/10/16 [Senokot-S] Simethicone [GAS-X] 250 mg PO TID 11/10/16 ZOLPIDEM TARTRATE [Ambien CR 12.5 1.5 tab PO HS 11/10/16 mg] Hydrocodone/Acetaminophen [[place] 1 each PO Q4HRS #30 tablet 11/14/16 5/325 (*)] Pantoprazole Sodium [Protonix 40mg 40 mg PO BID #60 tab 11/14/16 (*)] Medical Decision Making - Diagnostics Imaging Results: Imaging Impressions Chest X-Ray 12/04/16 17:14 Impression: 1. Poor inspiration with compressive changes at the lung bases. ED Course/Re-evaluation: In the emergency department I discussed possible etiologies with the patient. I answered all his questions. IV was placed. Patient was given normal saline. The lactic acid elevated at 2.5. The chest x-ray: Poor expansion of the lungs. No focal infiltrate. Please refer the dictated report. The patient was noted to have a low hemoglobin of 5.1. Hematocrit is 16.3. Blood transfusion was ordered. I discussed the results with the patient's family. I answered all his questions. On recheck the patient is slightly agitated. He was given Ativan 1 mg IV. It is noted his ammonia is elevated at 67. Sinus tachycardia 104. Normal axis. Normal intervals. No ST or T-wave abnormality. Because of his need for transfusion, anemia, underlying disease and agitation he will be admitted to the ICU. Patient has a mildly elevated LFTs. His troponin is mildly elevated. Differential Diagnosis: My differential includes but is not limited to pancreatic cancer, metastatic disease, ascites, peritonitis, pneumonia, effusion, dehydration, anemia, GI bleed Critical Care Time: The patient required 35 minutes of critical care time. This is exclusive of any unbundled procedure. This was due the patient's diagnosis pancreatic cancer , severe anemia, requiring blood transfusion, consultation with the hospitalist service, repeat checks and time spent at the bedside. - Data Points Laboratory Results: Laboratory Results 12/04/16 17:30 12/04/16 17:30 12/04/16 12/04/16 12/04/16 17:30 17:30 17:30 WBC RBC Hgb Hct MCV MCH MCHC RDW Plt Count MPV Neut % (Auto) Lymph % (Auto) [place] % (Auto) Eos % (Auto) Baso % (Auto) Nucleat RBC Rel Count Absolute Neuts (auto) Absolute Lymphs (auto) Absolute Monos (auto) Absolute Eos (auto) Absolute Basos (auto) Absolute Nucleated RBC Immature Gran % Immature Gran # Platelet Estimate Smear Review By PT INR APTT VBG Lactic Acid 2.5 mmol/L H mmol/L (0.7-2.1) Sodium Potassium Chloride Carbon Dioxide Anion Gap BUN Creatinine Estimated GFR Glucose Calcium Total Bilirubin Conjugated Bilirubin Unconjugated Bilirubin AST ALT Alkaline Phosphatase Ammonia 67.0 uMOL/L H uMOL/L (9.0-30.0) Troponin I Total Protein Albumin Lipase Patient ABO/Rh Pending Antibody Screen Pending Crossmatch IS Only See Detail 12/04/16 12/04/16 12/04/16 17:30 17:30 17:30 WBC 7.95 10^3/uL 10^3/uL (3.80-9.50) RBC 1.84 10^6/uL L 10^6/uL (4.40-6.38) Hgb 5.1 g/dL L* g/dL (13.7-17.5) Hct 16.3 % L* % (40.0-51.0) MCV 88.6 fL fL (81.5-99.8) MCH 27.7 pg L pg (27.9-34.1) MCHC 31.3 g/dL L g/dL (32.4-36.7) RDW 16.3 % H % (11.5-15.2) Plt Count 133 10^3/uL L 10^3/uL (150-400) MPV 11.0 fL fL (8.7-11.7) Neut % (Auto) 64.9 % % (39.3-74.2) Lymph % (Auto) 13.7 % L % (15.0-45.0) [place] % (Auto) 19.4 % H % (4.5-13.0) Eos % (Auto) 1.1 % % (0.6-7.6) Baso % (Auto) 0.3 % % (0.3-1.7) Nucleat RBC Rel Count 0.0 % % (0.0-0.2) Absolute Neuts (auto) 5.16 10^3/uL 10^3/uL (1.70-6.50) Absolute Lymphs (auto) 1.09 10^3/uL 10^3/uL (1.00-3.00) Absolute Monos (auto) 1.54 10^3/uL H 10^3/uL (0.30-0.80) Absolute Eos (auto) 0.09 10^3/uL 10^3/uL (0.03-0.40) Absolute Basos (auto) 0.02 10^3/uL 10^3/uL (0.02-0.10) Absolute Nucleated RBC 0.00 10^3/uL 10^3/uL (0-0.01) Immature Gran % 0.6 % % (0.0-1.1) Immature Gran # 0.05 10^3/uL 10^3/uL (0.00-0.10) Platelet Estimate Pending Smear Review By Pending PT 21.6 SEC H SEC (12.0-15.0) INR 1.87 H (0.83-1.16) APTT 43.3 SEC H SEC (23.0-38.0) VBG Lactic Acid Sodium 126 mEq/L L mEq/L (134-144) Potassium 3.6 mEq/L mEq/L (3.5-5.2) Chloride 95 mEq/L L mEq/L (97-110) Carbon Dioxide 22 mEq/l mEq/l (22-31) Anion Gap 9 mEq/L mEq/L (8-16) BUN 16 mg/dL mg/dL (7-23) Creatinine 0.6 mg/dL L mg/dL (0.7-1.3) Estimated GFR > 60 Glucose 130 mg/dL H mg/dL (70-100) Calcium 8.3 mg/dL L mg/dL (8.5-10.4) Total Bilirubin 1.9 mg/dL H mg/dL (0.1-1.4) Conjugated Bilirubin 1.0 mg/dL H mg/dL (0.0-0.5) Unconjugated Bilirubin 0.9 mg/dL mg/dL (0.0-1.1) AST 175 IU/L H IU/L (17-59) ALT 129 IU/L H IU/L (21-72) Alkaline Phosphatase 417 IU/L H IU/L (38-126) Ammonia Troponin I 0.035 ng/mL H ng/mL (0.000-0.034) Total Protein 5.0 g/dL L g/dL (6.3-8.2) Albumin 2.5 g/dL L g/dL (3.5-5.0) Lipase 90 IU/L IU/L (23-300) Patient ABO/Rh Antibody Screen Crossmatch IS Only Medications Given: Discontinued Medications Lorazepam (Ativan Injection) 1 mg IVP EDNOW ONE Stop: 12/04/16 18:09 Last Admin: 12/04/16 18:14 Dose: 1 mg Departure - Departure Disposition: [facility] Clinical Impression: Dizzy Anemia Qualifiers: Anemia type: unspecified type Qualified Code(s): D64.9 - Anemia, unspecified Condition: Fair
[2016-12-04 17:48] LABS: % IMMATURE GRANULYOCYTES 0.6 % (0.0-1.1); ABSOLUTE IMMATURE GRANULOCYTES 0.05 10^3/uL (0.00-0.10); ADD DIFF? NO; ADD MORPH? YES; ADD SCAN? NO; ATYPICAL LYMPHOCYTE FLAG 0 (0-99); FRAGMENT RBC FLAG 20 (0-99); HEMATOCRIT 16.3 % (40.0-51.0); LEFT SHIFT FLG 0 (0-99); LIPEMIA HEMOLYSIS FLAG 80 (0-99); MEAN CELL HEMOGLOBIN 27.7 pg (27.9-34.1); MEAN CELL HEMOGLOBIN CONCENTR. 31.3 g/dL (32.4-36.7); MEAN CELL VOLUME 88.6 fL (81.5-99.8); PLATELET CLUMPS FLAG 0 (0-99); PLATELET COUNT 133 10^3/uL (150-400); RED BLOOD CELL COUNT 1.84 10^6/uL (4.40-6.38); RED CELL DISTRIBUTION WIDTH 16.3 % (11.5-15.2)
[2016-12-04 17:59] LABS: INR 1.87 (0.83-1.16); PROTIME(PATIENT) 21.6 SEC (12.0-15.0)
[2016-12-04 18:00] LABS: APTT 43.3 SEC (23.0-38.0); HEMOGLOBIN 5.1 g/dL (13.7-17.5)
[2016-12-04] MEDS ORDERED: LORazepam 2 MG/ML INJ IVP ONE ×2 (18:08→18:52)
[2016-12-04 18:10] LABS: ALANINE AMINOTRANSFERASE 129 IU/L (21-72); ALBUMIN 2.5 g/dL (3.5-5.0); ALKALINE PHOSPHATASE 417 IU/L (38-126); ANION GAP 9 mEq/L (8-16); ASPARTATE AMINOTRANSFERASE 175 IU/L (17-59); BILIRUBIN,TOTAL 1.9 mg/dL (0.1-1.4); BILIRUBIN-UNCONJUGATED 0.9 mg/dL (0.0-1.1); CALCIUM 8.3 mg/dL (8.5-10.4); CARBON DIOXIDE 22 mEq/l (22-31); CHLORIDE 95 mEq/L (97-110); CREATININE 0.6 mg/dL (0.7-1.3); GLOMERULAR FILTRATION RATE > 60; GLUCOSE 130 mg/dL (70-100); POTASSIUM 3.6 mEq/L (3.5-5.2); SODIUM 126 mEq/L (134-144)
--- NOTE | 2016-12-04 18:10 | CPEKG ---
Heart Rate: 104 RR Interval: 577 P-R Interval: 148 QRSD Interval: 86 QT Interval: 352 QTC Interval: 463 P Aydlett: 36 QRS Aydlett: 1 T Wave Aydlett: 14 EKG Severity - OTHERWISE NORMAL ECG - EKG Impression: SINUS TACHYCARDIA Electronically Signed By: Hanane Mejia 04-Dec-2016 22:59:24
[2016-12-04 18:20] LABS: TROPONIN I 0.035 ng/mL (0.000-0.034)
[2016-12-04 18:31] LABS: PLATELET ESTIMATE DECREASED (ADEQ)
[2016-12-04] MEDS ORDERED: LORazepam 2 MG/ML INJ ONE (18:37)
[2016-12-04] MEDS ORDERED: LACTULOSE 20 GM/30 ML UDCUP PO ONE (18:38)
[2016-12-04] MEDS ORDERED: LORazepam 1 MG TAB PO PRN (19:02)
[2016-12-04] MEDS ORDERED: LIPASE PO PRN ×2 (19:02→19:51)
[2016-12-04] MEDS ORDERED: AMYLASE PO PRN ×2 (19:02→19:51)
[2016-12-04] MEDS ORDERED: SENNOSIDES/DOCUSATE SODIUM TAB PO PRN (19:02)
[2016-12-04] MEDS ORDERED: PROTEASE PO PRN ×2 (19:02→19:51)
[2016-12-04] MEDS ORDERED: POLYETHYLENE GLYCOL 3350 17 GM PKT PO PRN (19:02)
[2016-12-04] MEDS ORDERED: PROCHLORPERAZINE MALEATE 10 MG TAB PO PRN (19:02)
[2016-12-04 19:03] LABS: HYPOCHROMIA 1+; POLYCHROMASIA 1+
[2016-12-04 19:04] LABS: ECHINOCYTES 1+
[2016-12-04] MEDS ORDERED: ONDANSETRON DISINTEGRATING 4 MG TAB PO PRN (19:07)
[2016-12-04] MEDS ORDERED: PROMETHAZINE HCL 25 MG/ML INJ IVP PRN (19:07)
[2016-12-04] MEDS ORDERED: ACETAMINOPHEN 325 MG TAB PO PRN (19:07)
[2016-12-04] MEDS ORDERED: ONDANSETRON 4 MG/2 ML VIAL IVP PRN (19:07)
[2016-12-04] MEDS ORDERED: NS 1,000 ML IV SCH (19:15)
[2016-12-04] MEDS: HALOPERIDOL LACT 5 MG/ML INJ IVP PRN (20:06)
--- NOTE | 2016-12-04 20:07 | GHP ---
[f rep st] HISTORY AND PHYSICAL DATE OF ADMISSION: 12/04/2016 The patient is a pleasant 56-year-old gentleman with a history of metastatic pancreatic cancer who w as admitted to the hospital here a couple of weeks ago with a 7 unit upper GI bleed with unconfirmed source, suspected hemobilia. Of note, he was diagnosed at the beginning of this month with pancrea tic cancer. In the intervening week, he traveled to [place] for business where he was hospitalized and received tr ansfusion and IV fluids. He returns, looking cachectic and he is noticeably more ill and cachectic looking even 2-1/2 weeks ago when I took care of him. His family brought him into the emergency department today because he was somnolent and lethargic an d pale. He has been eating poorly. He denies melena or bright red blood per rectum or hematemesis or coffee-ground emesis. He has also complained of lightheadedness and dizziness that is orthostatic in nature. He also note s increased abdominal distention. He does have a history of paracentesis. REVIEW OF SYSTEMS: Complete 10-point review of systems conducted and negative except as noted in th e HPI. PAST MEDICAL HISTORY: 1. Pancreatic cancer, metastatic. 2. Port placement. 3. Low back pain. 4. Hypertension. SOCIAL HISTORY: No tobacco. Does drink alcohol. FAMILY HISTORY: Negative for cancer. ALLERGIES: No known drug allergies. HOME MEDICATIONS: Bock, fentanyl patch, iron sulfate, losartan, pantoprazole, spironolactone, Ambi en, pancreatic enzymes, Lorazepam, multivitamin, MiraLAX, prochlorperazine, senna, simethicone. PHYSICAL EXAM: VITAL SIGNS: Temp 36.4, blood pressure 126/85, pulse 118, breathing 20 times a minut e, 97% on room air. GENERAL: Agitated, but in no acute distress. He is confused. HEENT: Sclerae are anicteric. Oropharynx clear. Mucous membranes are moist. NECK. Without lymphadenopathy or J VD. LUNGS: Clear to auscultation bilaterally. HEART: Tachycardic. S1 and S2. ABDOMEN: Distend ed with a fluid wave, but is not tense. LOWER EXTREMITIES: Show 1+ edema bilaterally. Calves are nontender. SKIN: Without rash. NEUROLOGIC: Grossly nonfocal. The patient is cachectic. LABORATORY DATA: White count 8, hemoglobin 5.1, hematocrit 16.3, 2-1/2 weeks ago, it was 9.9 and 29 . Platelets are 133,000. INR today shows an INR of 1.87. Venous lactate is elevated at 2.5. [place] um is 126, potassium 3.6, chloride 95, bicarb 22, BUN 16, creatinine 0.6, glucose 130, bilirubin is 1.9, AST is 135, ALT is 129. These are higher values than he had in the past. Alkaline phosphatase is elevated at 417. Ammonia is 67. Troponin 0.035. Albumin is 2.5. Chest x-ray today shows poor inspiration with compressive changes at the lung bases. EKG, interpreted by me, shows sinus tach a t 104 with normal axis and intervals. No ST or T-wave changes. I discussed the case with Dr. Hanane Mejia, as well as Dr. Hugh Dixon. ASSESSMENT AND PLAN: A 56-year-old gentleman with metastatic pancreatic cancer presents with severe anemia, encephalopathy. 1. Severe anemia concerning for blood loss. At this point in time, the patient does not appear to be actively bleeding, so will manage with PPI, was given 3 units of packed red cells. 2. Encephalopathy. I suspect this is secondary to anemia. He does not have asterixis on exam to s uggest that he has hepatic encephalopathy, although I do acknowledge that he has evidence of liver d isease. Will use Haldol for management of agitation which is currently going on right now. He did receive a couple mg of Ativan in the emergency department as it is quicker acting and he is trying t o leave. I will check an abdominal ultrasound to evaluate for portal vein thrombosis. 3. Ascites. Patient needs a paracentesis. I will order for the morning. 4. Positive troponin. This is demand in the setting of severe anemia. 5. Code status. I brought this up with the . It sounds like he has a living will, which basica lly limits the perpetuation of Critical Care in the setting of an unresponsive patient. I brought t he idea of do not resuscitate, but no answer has been provided. 6. Suspected hemobilia. Will follow this. An abdominal ultrasound ordered. We will see if he has dilated ducts. 7. Disposition: ICU. 8. Hyponatremia. This is likely secondary to his critical illness and will follow. 9. Indeterminate troponin. We will cycle this, although this is not acute coronary syndrome. 10. Elevated liver function tests. Again I will evaluate for hemophilia and portal vein thrombosis . /[id number]/MODL
[2016-12-04] MEDS: PANTOPRAZOLE SODIUM 40 MG in NS 100 ML IV SCH (20:43)
[2016-12-04 21:25] LABS: COLOR YELLOW; LEUKOCYTE ESTERASE,URINE NEGATIVE (NEGATIVE); NITRITE,URINE NEGATIVE (NEGATIVE)
[2016-12-04] MEDS: LACTULOSE 20 GM/30 ML UDCUP PO SCH (21:51)
[2016-12-04] MEDS ORDERED: SIMETHICONE 250 MG PO SCH (22:00)
[2016-12-04] MEDS: SIMETHICONE 80 MG TAB CHEW PO SCH (22:40)
[2016-12-05 03:50] LABS: % IMMATURE GRANULYOCYTES 0.1 % (0.0-1.1); ABSOLUTE IMMATURE GRANULOCYTES 0.01 10^3/uL (0.00-0.10); ABSOLUTE NRBC COUNT 0.02 10^3/uL (0-0.01); ADD DIFF? NO; ADD MORPH? YES; ADD SCAN? NO; ATYPICAL LYMPHOCYTE FLAG 0 (0-99); FRAGMENT RBC FLAG 20 (0-99); LEFT SHIFT FLG 0 (0-99); LIPEMIA HEMOLYSIS FLAG 80 (0-99); MEAN CELL HEMOGLOBIN 28.9 pg (27.9-34.1); MEAN CELL HEMOGLOBIN CONCENTR. 33.3 g/dL (32.4-36.7); MEAN CELL VOLUME 86.6 fL (81.5-99.8); MEAN PLATELET VOLUME 13.1 fL (8.7-11.7); NRBC-AUTO% 0.3 % (0.0-0.2); PLATELET CLUMPS FLAG 20 (0-99); PLATELET COUNT 91 10^3/uL (150-400); RED BLOOD CELL COUNT 1.94 10^6/uL (4.40-6.38); RED CELL DISTRIBUTION WIDTH 15.6 % (11.5-15.2)
[2016-12-05 03:57] LABS: HEMATOCRIT 16.8 % (40.0-51.0); HEMOGLOBIN 5.6 g/dL (13.7-17.5)
[2016-12-05 03:59] LABS: INR 1.84 (0.83-1.16); PROTIME(PATIENT) 21.3 SEC (12.0-15.0)
[2016-12-05 04:01] LABS: ALANINE AMINOTRANSFERASE 148 IU/L (21-72); ALBUMIN 2.4 g/dL (3.5-5.0); ALKALINE PHOSPHATASE 393 IU/L (38-126); ANION GAP 7 mEq/L (8-16); ASPARTATE AMINOTRANSFERASE 220 IU/L (17-59); BILIRUBIN,TOTAL 3.1 mg/dL (0.1-1.4); CALCIUM 8.2 mg/dL (8.5-10.4); CARBON DIOXIDE 24 mEq/l (22-31); CHLORIDE 100 mEq/L (97-110); CREATININE 0.5 mg/dL (0.7-1.3); GLOMERULAR FILTRATION RATE > 60; GLUCOSE 98 mg/dL (70-100); SODIUM 131 mEq/L (134-144); TOTAL PROTEIN 4.7 g/dL (6.3-8.2)
[2016-12-05 04:08] LABS: BILIRUBIN-CONJUGATED 1.2 mg/dL (0.0-0.5); BILIRUBIN-UNCONJUGATED 1.9 mg/dL (0.0-1.1)
[2016-12-05] MEDS: HALOPERIDOL LACT 5 MG/ML INJ IVP PRN (04:37)
[2016-12-05 05:10] LABS: ECHINOCYTES 1+; HYPOCHROMIA 1+; PLATELET ESTIMATE DECREASED (ADEQ); POLYCHROMASIA 1+
[2016-12-05] MEDS ORDERED: AMYLASE PO SCH ×2 (08:00)
[2016-12-05] MEDS ORDERED: LIPASE PO SCH ×2 (08:00)
[2016-12-05] MEDS ORDERED: PROTEASE PO SCH ×2 (08:00)
[2016-12-05] MEDS ORDERED: MULTIVITAMINS 1 EACH TAB PO SCH (09:00)
[2016-12-05] MEDS: PANTOPRAZOLE SODIUM 40 MG in NS 100 ML IV SCH (09:43)
[2016-12-05] MEDS ORDERED: HYDROmorphONE/DILAUDID 1 MG/ML SYR IVP PRN (09:54)
[2016-12-05] MEDS ORDERED: PANTOPRAZOLE SODIUM 80 MG in NS 100 ML IV SCH (10:00)
--- NOTE | 2016-12-05 10:06 | HOSPPROG ---
Hospitalist Progress Note Assessment/Plan: GI bleed - Pt having melanotic stool in setting of metastatic pancreatic cancer. Hgb 5.1 --> 5.6 after 1 u prbc's, has since received 2 more units, rpt hgb pending. ?hemobilia, prior EGD did not reveal a source. Metastatic pancreatic cancer - discussed case with Dr. Goodson, who advised pt and his family that pt has days to weeks life expectancy. Pt wishes to go home on hospice and does not want any further hospital care or interventions. Ascites in setting of hepatic metastases and possible cirrhosis - paracentesis deferred based on pt's wishes to forgo further medical interventions. A total of 45 minutes was spent in 2 separate meetings with patient and his family discussing current condition, prognosis and goals of care. He strongly desires to go home and his family supports this decision. Subjective: Pt up out of bed, restless, pacing around in the halls. Has a difficult time engaging in conversation, but able to make his wishes known. Objective: Vital Signs Temp Pulse Resp BP Pulse Ox 37.4 C 103 H 16 106/67 99 12/05/16 06:00 12/05/16 09:00 12/05/16 09:00 12/05/16 08:00 12/05/16 09:00 Laboratory Results 12/05/16 03:41 12/05/16 03:41 12/04/16 12/05/16 12/06/16 05:59 05:59 05:59 Intake Total 1644 350 Output Total 1325 Balance 319 350 PT 21.3 SEC (12.0-15.0) H 12/05/16 03:41 INR 1.84 (0.83-1.16) H 12/05/16 03:41 - Physical Exam Constitutional: chronically ill appearing Ears, Nose, Mouth, Throat: moist mucous membranes Cardiovascular: regular rate and rhythym Gastrointestinal: ascites Skin: warm Psychiatric: encephalopathic ICD10 Worksheet Patient Problems: Problems Problem Status Onset Anemia Acute Anemia Acute Dizzy Acute Fall Acute GI bleed Acute Gastric distention Acute Hypotension Acute Hypoxemia Acute Sleep apnea, obstructive Acute
[2016-12-05 10:22] LABS: HEMATOCRIT 20.6 % (40.0-51.0)
[2016-12-05] MEDS: LACTULOSE 20 GM/30 ML UDCUP PO SCH (10:40)
[2016-12-05] MEDS: SIMETHICONE 80 MG TAB CHEW PO SCH (11:06)
[2016-12-05 11:10] VITALS: BP 128/87; PULSE 109; RESP 22; TEMP 98.7; O2SAT 97
--- NOTE | 2016-12-05 11:38 | GCON ---
[f rep st] CONSULTATION HEM/ONC CONSULTATION. REASON FOR CONSULTATION: 1. Encephalopathic and delirium. 2. Advanced metastatic pancreatic cancer on 2 prior lines of therapy. Recommendations are best sup portive care with hospice type care. EXECUTIVE SUMMARY: The patient is a very pleasant 56-year-old man by history, and I got most of his history from his son. The patient presented to the hospital with a complaint of agitation, confusi on, and inability to manage at home. He had a 7-unit upper GI bleed about a 3 or 4 weeks ago with p robable duodenal invasion and hemobilia, and the patient now presents with a hemoglobin again of 5. The patient has progressive metastatic disease on CT scans from 11/10 and 11/18 compared to September, at [facility], and I have reviewed those films. He has clear-cut progression in the liver and in t he pancreatic mass, and he has new onset of ascites. The patient, therefore, has advanced metastati c disease after having had treatment with FOLFIRINOX and Abraxane plus gemcitabine. The patient now presents in the condition as mentioned above. He has admitting laboratory data that shows a hemogl obin of 5.1, normal white count, and a low-normal platelet count of 133. He has blood cultures pend ing. He is on cefepime as an antibiotic. The patient has been afebrile throughout this admission, and his blood pressure has been anywhere from 103-128 systolic. His O2 sats on room air have been n ormal, and his T-max is 37.4. The patient is currently somewhat confused. He is not having any hea daches. He denies any cough, shortness of breath, or chest pain. He has some abdominal distention, and it is consistent with ascites. He does not have any clear-cut asterixis. SOCIAL HISTORY: Reveals he has at least 3 sons, and he is . This is the stepmother of two o f his sons. There is no advanced directive. Social history reveals a prior history of "heavy drink ing" according to his son. 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 Currently he is not grossly icteric although I notice that his bilirubin is 3.1, up from 1.9 the day before. He has transaminase elevations grade 2, and he has an increased alkaline phosphatase. Alb umin is low at 2.4. CLINICAL ASSESSMENT: He has advanced metastatic pancreatic cancer. I spoke to his son. I would es timate his prognosis measured in days to weeks. Unless his sensorium clears or it is due to an infe ction, I have recommended that he have hospice care, and his son is in agreement. I have the hospit alist to get them to ask for hospice evaluation and transition to best supportive care. I have spok en to his primary oncologist, Dr. Connor. /[id number]/MODL
[2016-12-05] MEDS ORDERED: LACTULOSE 200 GM in SODIUM CL IRRIG SOLUTION 700 ML PR SCH (12:00)
[2016-12-05] MEDS ORDERED: HYDROCODONE/APAP 5/325 TAB PO PRN (12:35)
--- NOTE | 2016-12-06 02:45 | GDS ---
[f rep st] DISCHARGE SUMMARY DISCHARGE DIAGNOSES: 1. Gastrointestinal bleed suspected secondary to hemobilia. 2. Acute blood loss anemia status post 3 units of packed red blood cells. 3. Metastatic pancreatic cancer. 4. Liver failure with ascites possibly secondary to cirrhosis versus progression of metastatic canc er. 5. Acute encephalopathy. CLINICAL SOCIAL WORK THERAPIST: Frank Goodson MD, oncology. 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 The common bile duct measures about 4 mm in rocky meter. HISTORY: For details, please see dictated history and physical dated December 04, 2016. In brief, susie huston patient is a 56-year-old male who was diagnosed 1 year ago with pancreatic cancer. He has undergo ne 2 treatment courses of chemotherapy and has had 3 hospitalizations in the past month with a recen t hospitalization for upper GI bleed requiring 7 units of blood with an unconfirmed source though pepper spected secondary to hemobilia. He returned to the hospital with somnolence, poor appetite, lighthe adedness and confusion along with increasing abdominal distention. He was admitted to the hospital for further evaluation. HOSPITAL COURSE: Patient presented with severe anemia with a hemoglobin of 5.1. He was admitted to the intensive care unit. He received 3 units of packed red blood cells and his hemoglobin correcte d to 7. He did have some evidence of melanotic stools. His encephalopathy is possibly secondary to hepatic encephalopathy given the extent of his liver disease and possible cirrhosis with an elevate d ammonia of 67. He did seem to respond a bit to lactulose though remains somewhat confused and int ermittently agitated. We initially discussed proceeding with a paracentesis. 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 Oncology consult was obtained and told the patient and his famil y that his life expectancy was likely days to weeks. After a lengthy discussion with the family, susie tong felt they did not want to pursue any further interventions. They wished to proceed with hospice care and focus on comfort and quality of life rather than continued hospitalization. The patient ad amantly wished to go home and they have arranged for a hospice consult in their home tomorrow jose hidalgo I discussed with them the risk of decompensation tonight before they have hospice care on board including the risk of GI hemorrhage potentially leading to . They acknowledged these risks but want to prioritize the patient's wishes which are to be out of the hospital and to receive comfort care at home. I discussed this option with the care team including the nursing staff, oncologist, t he patient and his family. He is adamant about leaving the hospital. DISPOSITION: Patient is discharged home in fair condition. FOLLOWUP: [facility] will see the patient in his home tomorrow morning to proceed with hospice car e in the home environment. DISCHARGE MEDICATIONS: Please see [employer] for complete updated outpatient medication list. New me dications on discharge include: Roxanol 5 to 15 mg p.o. q.1 hour p.r.n. for pain, Haldol 2.5 to 5 m g p.o. q.6 hours p.r.n. for agitation, Zofran 4 mg p.o. q.4 hours p.r.n. for nausea and Ativan 1 mg p.o. q.6 hours p.r.n. for anxiety. /[id number]/MODL
--- NOTE | 2016-12-07 11:10 | ASMTCASEMG ---
Living Arrangements What is your living arrangement? Who do you live Answers: With Spouse with? Type Of Residence What kind of residence do you live in? Answers: House Stairs in Home Environment Answers: Yes Case Management Evaluation Functional: Able to return Home with Prior Level Answers: Yes Notes: Presently able to ambulate and do ADL's, but of Function/Care Hospice. Functional: ADL / IADL Performance Deficits Due Answers: Chronic Illness to: Cognitive Deficiency Psychosocial Needs: Answers: Major Life Changes Notes: Dying Terminal Illness Education Needs Answers: Hospice Notes: [facility] Discharge Plan Comments Coordination Status Comments Notes: Met with Pt and family and they wish to go home with Hospice care [facility]. Hospice to meet with famil y at 10AM on December 05. Pt has no equipment needs at this time. Medication scripts have been given to family. Hospice has been faxed pt info and Inessa ortiz. Date Signed: 12/07/2016 11:09 AM Electronically Signed By:Komal Gaines
--- NOTE | 2016-12-07 11:10 | ASDISCHSUM ---
Discharge Information Plan Status: Medically Cleared to Leave: Discharge Date:12/05/2016 02:10 PM D/C Disposition:[facility] D/C Disposition:Hospice Home Projected Discharge Date:12/05/2016 02:10 PM Transportation at D/C: Discharge Delay Reason: Follow-Up Date:12/05/2016 02:10 PM Discharge Slot: Final Diagnosis: Placement Information Patient Contact Information Contact Name:ALICE Relationship: Address:[address] [place] [address] Work Phone: City:[place] [facility] Phone: State/Zip Code:[place] [address] Email: Financial Information Financial Class:HMO and PPO Plans Primary Plan Desc: OUT OF STATE PPO Primary Plan Number:[id number] Secondary Plan Desc: Secondary Plan Number: Assessment Information [facility] Initial CM Assessment Living Arrangements What is your living Answers: With Spouse arrangement? Who do you live with? Type Of Residence What kind of residence do Answers: House you live in? Stairs in Home Answers: Yes Environment Case Management Evaluation Functional: Able to Answers: Yes Notes: Presently able to return Home with Prior ambulate and do Level of Function/Care ADL's, but Hospice. Functional: ADL / IADL Answers: Chronic Illness Performance Deficits Due to: Cognitive Deficiency Psychosocial Needs: Answers: Major Life Changes Notes: Dying Terminal Illness Education Needs Answers: Hospice Notes: [facility] Discharge Plan Comments Coordination Status Comments Notes: Met with Pt and family and they wish to go home with Hospice care [facility]. Hospice to meet with family at 10AM on December 05. Pt has no equipment needs at this time. Medication scripts have been given to family. Hospice has been faxed pt info and Orders. Date Signed: 12/07/2016 11:09 AM Electronically Signed By:Komal Gaines Intervention Information
== END 2016-12-05 14:10 | disposition hospice, home (50) | DRG 811 ==
LOC: F2N 19:21
PROVIDERS: ADMIT Internal Medicine; ATTEND Hospitalist
PROC: 30233N1 Transfusion of Nonautologous Red Blood Cells into Peripheral Vein, Percutaneous Approach (ICD-10-PCS; principal; 2016-12-04)
DX: D62 Acute posthemorrhagic anemia (principal); K92.2 Gastrointestinal hemorrhage, unspecified; C25.9 Malignant neoplasm of pancreas, unspecified; C78.7 Secondary malignant neoplasm of liver and intrahepatic bile duct; R18.8 Other ascites; G93.40 Encephalopathy, unspecified; K83.8 Other specified diseases of biliary tract; R14.0 Abdominal distension (gaseous); R94.5 Abnormal results of liver function studies; R79.9 Abnormal finding of blood chemistry, unspecified; E87.1 Hypo-osmolality and hyponatremia; K72.90 Hepatic failure, unspecified without coma; M54.9 Dorsalgia, unspecified; I10 Essential (primary) hypertension; G47.33 Obstructive sleep apnea (adult) (pediatric); Z92.21 Personal history of antineoplastic chemotherapy; Z95.828 Presence of other vascular implants and grafts
CPT/HCPCS: 96374; J0696; J1170; J2060; P9016